=== PATIENT | female | born 1945 | race Caucasian/White ===

== ENCOUNTER 2017-12-15 14:27 | Emergency (ER) | payer MEDICARE, OTHER ==
[2017-12-15 15:11] LABS: Basophils % (A) 0 %; Eosinophils % (A) 1 %; HCT 44.6 % (34.0-46.0); HGB 15.5 gm/dL (11.4-16.0); Lymphocytes # (A) 1.5 k/uL (1.0-4.8); Lymphocytes % (A) 24 %; MCH 30.1 pg (25.0-35.0); MCHC 34.8 g/dL (31.0-37.0); MCV 86.6 fL (80.0-100.0); Monocytes # (A) 0.4 k/uL (0-1.0); Monocytes % (A) 7 %; Neutrophils % (A) 64 %; Platelet Count 263 k/uL (150-450); RBC 5.15 m/uL (3.80-5.40); RDW 12.8 % (11.5-15.5); WBC 6.3 k/uL (3.8-10.6)
[2017-12-15] MEDS ORDERED: DILTIAZEM CD 120 MG CAP.ER.24H PO STA (15:14)
[2017-12-15 15:19] LABS: Albumin 4.2 g/dL (3.5-5.0); Calcium 10.4 mg/dL (8.4-10.2); Total Bilirubin 0.5 mg/dL (0.2-1.3); Total Protein 6.9 g/dL (6.3-8.2)
[2017-12-15 15:22] LABS: Magnesium 1.9 mg/dL (1.6-2.3); Potassium 4.8 mmol/L (3.5-5.1)
[2017-12-15 15:25] LABS: INR 1.4 (<1.2); Partial Thromboplastin Time 28.3 sec (22.0-30.0); Prothrombin Time 13.4 sec (9.0-12.0)
--- NOTE | 2017-12-15 15:25 | XR ---
EXAMINATION TYPE: XR chest 2V DATE OF EXAM: 12/15/2017 COMPARISON: 09/19/2014 HISTORY: 72-year-old female with dysrhythmia TECHNIQUE: PA and lateral views FINDINGS: Heart borderline enlarged. Mild elongation thoracic aorta. Mild diffuse interstitial prominence and m ild hyperinflation. No consolidation or pleural effusion. IMPRESSION: Chronic changes, possible underlying COPD. Borderline heart size. Otherwise, no acute process seen.
[2017-12-15 15:38] VITALS: RESP 18
--- NOTE | 2017-12-15 16:05 | ED ---
Arrhythmia/Palpitations HPI - General Chief Complaint: Arrhythmia/Palpitations Stated Complaint: AFIB Time Seen by Provider: 12/15/17 14:36 Source: patient Mode of arrival: ambulatory Limitations: no limitations - History of Present Illness Initial Comments: Patient presents with palpitations. She has a history of atrial fibrillation. She has taken no medication for the symptoms. She denies any fever, chills. She has no shortness of breath. She has no lightheadedness or dizziness. Nothing makes her symptoms better or worse. She was not doing anything when the palpitations began. They're getting worse. She has no swelling in the legs. She denies sick contacts or recent travel. - Related Data Home Medications Medication Instructions Recorded Confirmed Metoprolol Succinate [Toprol XL] 25 mg PO DAILY 09/04/14 12/15/17 Edoxaban Tosylate [Savaysa] 60 mg PO DAILY 12/29/14 12/15/17 Azithromycin [Zithromax Z-pack] See Taper PO DAILY 12/15/17 12/15/17 Pel[place]o Capsules 1 cap PO DAILY 12/15/17 12/15/17 Cholecalciferol [Vitamin D3] 1,000 unit PO DAILY 12/15/17 12/15/17 Flaxseed Oil [[place]-3 Flaxseed Oil] 1,000 mg PO DAILY 12/15/17 12/15/17 L.acidoph,Paracasei, B.lactis 1 cap PO DAILY 12/15/17 12/15/17 [Probiotic] Lutein 20 mg PO DAILY 12/15/17 12/15/17 Multivit-Min/Iron/Folic/Lutein 1 tab PO DAILY 12/15/17 12/15/17 [Centrum Silver Women Tablet] valACYclovir HCL [Valtrex] 1,000 mg PO BID 12/15/17 12/15/17 Allergies Allergy/AdvReac Type Severity Reaction Status Date / Time apixaban [From Eliquis] Allergy skin on Verified 12/15/17 15:55 face turned red, rash Penicillins Allergy Rash/Hives Verified 12/15/17 15:55 losartan [From Cozaar] AdvReac Rash/Hives Verified 12/15/17 15:55 rivaroxaban [From Xarelto] AdvReac Blood in Verified 12/15/17 15:55 stool cosmetics Allergy Unknown Uncoded 12/15/17 14:33 detergent Allergy Unknown Uncoded 12/15/17 14:33 metal Allergy Unknown Uncoded 12/15/17 14:33 Review of Systems ROS Statement: Those systems with pertinent positive or pertinent negative responses have been documented in the HPI. ROS Other: All systems not noted in ROS Statement are negative. Past Medical History Past Medical History: Atrial Fibrillation, Chest Pain / Angina, GERD/Reflux, Hypertension, Osteoarthritis (OA) Additional Past Medical History / Comment(s): varicose veins, hiatal hernia, fatty liver, skin rashes, History of Any Multi-Drug Resistant Organisms: None Reported Past Surgical History: Back Surgery, Cholecystectomy, Hysterectomy, Joint Replacement, Orthopedic Surgery Additional Past Surgical History / Comment(s): Total L knee replacement, Recto/ cystocele, laminectomy, left knee arthroscopy Past Anesthesia/Blood Transfusion Reactions: Previous Problems w/ Anesthesia Additional Past Anesthesia/Blood Transfusion Reaction / Comment(s): uncontrollable crying post op one time, Past Psychological History: No Psychological Hx Reported Smoking Status: Former smoker Past Alcohol Use History: None Reported Past Drug Use History: None Reported - Past Family History Mother Family Medical History: Cancer, Thyroid Disorder Additional Family Medical History / Comment(s): Colon CA Father Additional Family Medical History / Comment(s): Aortic embolism Son(s) Family Medical History: Pulmonary Embolus Additional Family Medical History / Comment(s): pulmonic embolism Sister(s) Family Medical History: Cancer, Deep Vein Thrombosis (DVT) General Exam Limitations: no limitations General appearance: alert, in no apparent distress Head exam: Present: atraumatic, normocephalic, normal inspection Eye exam: Present: normal appearance, PERRL, EOMI. Absent: scleral icterus, conjunctival injection, periorbital swelling ENT exam: Present: normal exam, mucous membranes moist Neck exam: Present: normal inspection. Absent: tenderness, meningismus, lymphadenopathy Respiratory exam: Present: normal lung sounds bilaterally. Absent: respiratory distress, wheezes, rales, rhonchi, stridor Cardiovascular Exam: Present: tachycardia, normal heart sounds. Absent: systolic murmur, diastolic murmur, rubs, gallop, clicks GI/Abdominal exam: Present: soft, normal bowel sounds. Absent: distended, tenderness, guarding, rebound, rigid Extremities exam: Present: normal inspection, full ROM, normal capillary refill. Absent: tenderness, pedal edema, joint swelling, calf tenderness Back exam: Present: normal inspection Neurological exam: Present: alert, oriented X3, CN II-XII intact Psychiatric exam: Present: normal affect, normal mood Skin exam: Present: warm, dry, intact, normal color. Absent: rash Course Vital Signs 12/15/17 12/15/17 12/15/17 14:30 15:17 15:36 Temperature 97.9 F Pulse Rate 63 139 H 138 H Respiratory 20 20 18 Rate Blood Pressure 163/98 177/97 139/80 O2 Sat by Pulse 99 98 97 Oximetry EKG Findings - EKG Comments: EKG Findings:: Twelve-lead EKG shows ventricular rate 151 bpm, no P waves are present, normal QRS complex is, no ST elevation or depression, interpreted by me as atrial fibrillation with rapid ventricular response. Medical Decision Making - Medical Decision Making Patient presents with A. fib with RVR. I gave her a dose of oral Cardizem. Her troponin is negative. She will be admitted to the hospital. - Lab Data Result diagrams: 12/15/17 14:50 12/15/17 14:50 Lab Results 12/15/17 12/15/17 12/15/17 Range/Units 14:50 14:50 14:50 WBC 6.3 (3.8-10.6) k/uL RBC 5.15 (3.80-5.40) m/uL Hgb 15.5 (11.4-16.0) gm/dL Hct 44.6 (34.0-46.0) % MCV 86.6 (80.0-100.0) fL MCH 30.1 (25.0-35.0) pg MCHC 34.8 (31.0-37.0) g/dL RDW 12.8 (11.5-15.5) % Plt Count 263 (150-450) k/uL Neutrophils % 64 % Lymphocytes % 24 % Monocytes % 7 % Eosinophils % 1 % Basophils % 0 % Neutrophils # 4.0 (1.3-7.7) k/uL Lymphocytes # 1.5 (1.0-4.8) k/uL Monocytes # 0.4 (0-1.0) k/uL Eosinophils # 0.0 (0-0.7) k/uL Basophils # 0.0 (0-0.2) k/uL PT 13.4 H (9.0-12.0) sec INR 1.4 H (<1.2) APTT 28.3 (22.0-30.0) sec Sodium 140 (137-145) mmol/L Potassium 4.8 (3.5-5.1) mmol/L Chloride 104 (98-107) mmol/L Carbon Dioxide 25 (22-30) mmol/L Anion Gap 11 mmol/L BUN 21 H (7-17) mg/dL Creatinine 0.84 (0.52-1.04) mg/dL Est GFR (CKD-EPI)AfAm 81 (>60 ml/min/1.73 sqM) Est GFR (CKD-EPI)NonAf 71 (>60 ml/min/1.73 sqM) Glucose 136 H (74-99) mg/dL Calcium 10.4 H (8.4-10.2) mg/dL Magnesium 1.9 (1.6-2.3) mg/dL Total Bilirubin 0.5 (0.2-1.3) mg/dL AST 39 H (14-36) U/L ALT 37 (9-52) U/L Alkaline Phosphatase 48 (38-126) U/L Troponin I (0.000-0.034) ng/mL Total Protein 6.9 (6.3-8.2) g/dL Albumin 4.2 (3.5-5.0) g/dL 12/15/17 Range/Units 14:50 WBC (3.8-10.6) k/uL RBC (3.80-5.40) m/uL Hgb (11.4-16.0) gm/dL Hct (34.0-46.0) % MCV (80.0-100.0) fL MCH (25.0-35.0) pg MCHC (31.0-37.0) g/dL RDW (11.5-15.5) % Plt Count (150-450) k/uL Neutrophils % % Lymphocytes % % Monocytes % % Eosinophils % % Basophils % % Neutrophils # (1.3-7.7) k/uL Lymphocytes # (1.0-4.8) k/uL Monocytes # (0-1.0) k/uL Eosinophils # (0-0.7) k/uL Basophils # (0-0.2) k/uL PT (9.0-12.0) sec INR (<1.2) APTT (22.0-30.0) sec Sodium (137-145) mmol/L Potassium (3.5-5.1) mmol/L Chloride (98-107) mmol/L Carbon Dioxide (22-30) mmol/L Anion Gap mmol/L BUN (7-17) mg/dL Creatinine (0.52-1.04) mg/dL Est GFR (CKD-EPI)AfAm (>60 ml/min/1.73 sqM) Est GFR (CKD-EPI)NonAf (>60 ml/min/1.73 sqM) Glucose (74-99) mg/dL Calcium (8.4-10.2) mg/dL Magnesium (1.6-2.3) mg/dL Total Bilirubin (0.2-1.3) mg/dL AST (14-36) U/L ALT (9-52) U/L Alkaline Phosphatase (38-126) U/L Troponin I <0.012 (0.000-0.034) ng/mL Total Protein (6.3-8.2) g/dL Albumin (3.5-5.0) g/dL Disposition Clinical Impression: Atrial fibrillation Disposition: ADMITTED IP TO THIS HOSP Condition: Serious Is patient prescribed a controlled substance at discharge?: No Referrals: Leon Cerrato MD [Primary Care Provider] - 1-2 days Time of Disposition: 16:05
--- NOTE | 2017-12-15 18:15 | ED ---
Medical Decision Making - Medical Decision Making The patient was monitored on the classroom monitor and her heart beat was down around 60 on recheck. This does appear to be regular. A repeat EKG was done and this shows a sinus bradycardia at a rate of 57. There is no acute ST-T wave changes identified. The TX intervals 152, QRS duration is 80, and QTC intervals 426. The patient appears to be remarkably improved. She states that her symptoms have completely resolved. The case is discussed with Dr. Cerrato and he would like her discharged home at this period of time. They admission is canceled. Return parameters are discussed and she leaves in no distress. - Lab Data Result diagrams: 12/15/17 14:50 12/15/17 14:50 Lab Results 12/15/17 12/15/17 12/15/17 Range/Units 14:50 14:50 14:50 WBC 6.3 (3.8-10.6) k/uL RBC 5.15 (3.80-5.40) m/uL Hgb 15.5 (11.4-16.0) gm/dL Hct 44.6 (34.0-46.0) % MCV 86.6 (80.0-100.0) fL MCH 30.1 (25.0-35.0) pg MCHC 34.8 (31.0-37.0) g/dL RDW 12.8 (11.5-15.5) % Plt Count 263 (150-450) k/uL Neutrophils % 64 % Lymphocytes % 24 % Monocytes % 7 % Eosinophils % 1 % Basophils % 0 % Neutrophils # 4.0 (1.3-7.7) k/uL Lymphocytes # 1.5 (1.0-4.8) k/uL Monocytes # 0.4 (0-1.0) k/uL Eosinophils # 0.0 (0-0.7) k/uL Basophils # 0.0 (0-0.2) k/uL PT 13.4 H (9.0-12.0) sec INR 1.4 H (<1.2) APTT 28.3 (22.0-30.0) sec Sodium 140 (137-145) mmol/L Potassium 4.8 (3.5-5.1) mmol/L Chloride 104 (98-107) mmol/L Carbon Dioxide 25 (22-30) mmol/L Anion Gap 11 mmol/L BUN 21 H (7-17) mg/dL Creatinine 0.84 (0.52-1.04) mg/dL Est GFR (CKD-EPI)AfAm 81 (>60 ml/min/1.73 sqM) Est GFR (CKD-EPI)NonAf 71 (>60 ml/min/1.73 sqM) Glucose 136 H (74-99) mg/dL Calcium 10.4 H (8.4-10.2) mg/dL Magnesium 1.9 (1.6-2.3) mg/dL Total Bilirubin 0.5 (0.2-1.3) mg/dL AST 39 H (14-36) U/L ALT 37 (9-52) U/L Alkaline Phosphatase 48 (38-126) U/L Troponin I (0.000-0.034) ng/mL Total Protein 6.9 (6.3-8.2) g/dL Albumin 4.2 (3.5-5.0) g/dL 12/15/17 Range/Units 14:50 WBC (3.8-10.6) k/uL RBC (3.80-5.40) m/uL Hgb (11.4-16.0) gm/dL Hct (34.0-46.0) % MCV (80.0-100.0) fL MCH (25.0-35.0) pg MCHC (31.0-37.0) g/dL RDW (11.5-15.5) % Plt Count (150-450) k/uL Neutrophils % % Lymphocytes % % Monocytes % % Eosinophils % % Basophils % % Neutrophils # (1.3-7.7) k/uL Lymphocytes # (1.0-4.8) k/uL Monocytes # (0-1.0) k/uL Eosinophils # (0-0.7) k/uL Basophils # (0-0.2) k/uL PT (9.0-12.0) sec INR (<1.2) APTT (22.0-30.0) sec Sodium (137-145) mmol/L Potassium (3.5-5.1) mmol/L Chloride (98-107) mmol/L Carbon Dioxide (22-30) mmol/L Anion Gap mmol/L BUN (7-17) mg/dL Creatinine (0.52-1.04) mg/dL Est GFR (CKD-EPI)AfAm (>60 ml/min/1.73 sqM) Est GFR (CKD-EPI)NonAf (>60 ml/min/1.73 sqM) Glucose (74-99) mg/dL Calcium (8.4-10.2) mg/dL Magnesium (1.6-2.3) mg/dL Total Bilirubin (0.2-1.3) mg/dL AST (14-36) U/L ALT (9-52) U/L Alkaline Phosphatase (38-126) U/L Troponin I <0.012 (0.000-0.034) ng/mL Total Protein (6.3-8.2) g/dL Albumin (3.5-5.0) g/dL Disposition Clinical Impression: Atrial fibrillation Disposition: HOME SELF-CARE Condition: Serious Instructions: Palpitations (ED), A-fib (Atrial Fibrillation) (ED) Is patient prescribed a controlled substance at discharge?: No Referrals: Leon Cerrato MD [Primary Care Provider] - 1-2 days Sherif Graves MD [STAFF PHYSICIAN] - 1-2 days Time of Disposition: 18:14
[2017-12-15 18:38] VITALS: BP 128/71; PULSE 93; TEMP 98.2
== END 2017-12-15 18:38 | disposition home or self-care (01) ==
LOC: EC 14:27
DX: I48.91 Unspecified atrial fibrillation (principal); I10 Essential (primary) hypertension; Z87.891 Personal history of nicotine dependence; Z79.01 Long term (current) use of anticoagulants; Z79.899 Other long term (current) drug therapy; Z88.8 Allergy status to other drugs, medicaments and biological substances; Z88.0 Allergy status to penicillin; Z91.048 Other nonmedicinal substance allergy status
CPT/HCPCS: 36415; 71046; 80053; 83735; 84484; 85025; 85610; 85730; 93005; 99285

== ENCOUNTER 2019-01-10 10:06 | Day surgery (SDC) | payer MEDICARE, OTHER ==
[2019-01-05 15:59] VITALS: BMI 32.3
[~2019-01-10 10:06] MED LIST: CLINDAMYCIN 900 MG in DEXTROSE 5% IN WATER 50 ML IVPB ONE; SODIUM CHLORIDE 0.9% 1,000 ML IV SCH
[2019-01-10 10:26] VITALS: RESP 16; TEMP 98
[2019-01-10] MEDS ORDERED: LIDOCAINE 1% INJ 10MG/ML (20 ML MDV) ONE ×2 (11:51→14:33)
[2019-01-10] MEDS ORDERED: LIDOCAINE 1% INJ 10MG/ML (20 ML MDV) SQ ONE (12:23)
[2019-01-10] MEDS ORDERED: fentaNYL (PF) 50 MCG/ML 2 ML AMP ONE (12:23)
[2019-01-10] MEDS ORDERED: fentaNYL (PF) 50 MCG/ML 2 ML AMP IV ONE (12:24)
--- NOTE | 2019-01-10 12:48 | P.PCN ---
Preoperative Diagnosis: Loop monitor implant Primary physicians: Dr. Cerrato Deputy Head: dr Vaughan Indication: Recurrent palpitations Patient was brought to the EP lab in a fasting state. Written informed consent was obtained prior to the procedure. The left pectoral area was prepped and draped per protocol. Intravenous antibiotic was administered preoperatively. A subcutaneous Loop monitor was implanted successfully and the wound was closed per protocol. The device was programmed to detect significant isak- arrhythmic and tachy-arrhythmic events, per protocol. Device and programming details: A. fib programming Patient underwent EP procedure under conscious sedation/moderate sedation, monitoring of the level of consciousness and physiologic parameters including but not limited to vital signs and oxygenation. Patient tolerated the procedure well without any acute complications. Start time: 1221 Stop time: 1232
[2019-01-10 13:11] VITALS: BP 121/60; PULSE 52
== END 2019-01-10 13:30 | disposition home or self-care (01) ==
LOC: CATHEP 10:06
PROVIDERS: ATTEND Internal Medicine Clinical Cardiac Electrophysiology
DX: I48.91 Unspecified atrial fibrillation (principal)
CPT/HCPCS: 33285; C1764; J2001; J3010

== ENCOUNTER → 2019-07-06 | Outpatient (CLI) | payer MEDICARE, OTHER ==
[2019-07-06 17:49] LABS: Appearance,BF Bloody; Color,BF Red; Nucleated Cells, Body Fluid 625 /uL; RBC, Body Fluid 1120000 /uL
[2019-07-06 17:52] LABS: Mononuclear WBC,Body Fluid 97 %; Polynuclear WBC,Body Fluid 3 %; Total Cells Counted,Body Fluid 100
== END | disposition home or self-care (01) ==
LOC: LABWHC1 11:26
PROVIDERS: ATTEND Orthopaedic Surgery
DX: M25.562 Pain in left knee (principal); M25.462 Effusion, left knee; Z96.652 Presence of left artificial knee joint
CPT/HCPCS: 87070; 87075; 87205; 89050; 89060

== ENCOUNTER → 2019-09-11 | Outpatient (CLI) | payer MEDICARE, OTHER ==
[2019-09-11 16:29] LABS: HCT 40.9 % (34.0-46.0); HGB 13.8 gm/dL (11.4-16.0); MCH 30.9 pg (25.0-35.0); MCHC 33.7 g/dL (31.0-37.0); MCV 91.9 fL (80.0-100.0); Mean Platelet Volume 7.3; Platelet Count 184 k/uL (150-450); RBC 4.45 m/uL (3.80-5.40); RDW 12.6 % (11.5-15.5); WBC 3.4 k/uL (3.8-10.6)
[2019-09-11 16:36] LABS: Potassium 4.9 mmol/L (3.5-5.1)
== END | disposition home or self-care (01) ==
LOC: LABPAT 15:34
PROVIDERS: ATTEND Internal Medicine Clinical Cardiac Electrophysiology
DX: Z01.812 Encounter for preprocedural laboratory examination (principal); I48.91 Unspecified atrial fibrillation; I47.1 Supraventricular tachycardia
CPT/HCPCS: 80051; 82565; 82947; 84520; 85027

== ENCOUNTER 2019-09-14 06:52 | Day surgery (SDC) | payer MEDICARE, OTHER ==
[2019-09-11 12:00] VITALS: BMI 34.4
[~2019-09-14 06:52] MED LIST changes: -CLINDAMYCIN 900 MG in DEXTROSE 5% IN WATER 50 ML IVPB ONE; +MIDAZOLAM 2 MG/2 ML VIAL IV PRN; +ONDANSETRON 4 MG/2 ML VIAL IVP ONE; -SODIUM CHLORIDE 0.9% 1,000 ML IV SCH; +fentaNYL (PF) 50 MCG/ML 2 ML AMP IV PRN
[2019-09-14] MEDS: SODIUM CHLORIDE 0.9% 1,000 ML IV SCH ×2 (07:20→20:25)
[2019-09-14] MEDS ORDERED: HEPARIN SODIUM,PORCINE 30 ML 30 ML ONE (08:10)
[2019-09-14] MEDS ORDERED: PROTAMINE SULFATE 10 MG/ML 5 ML VIAL IV ONE (08:22)
[2019-09-14] MEDS ORDERED: ePHEDrine SULFATE/0.9% NACL/PF 50 MG/5 ML SYRINGE IV ONE (08:22)
[2019-09-14] MEDS ORDERED: LIDOCAINE 1% INJ 10MG/ML (20 ML MDV) ONE (08:22)
[2019-09-14] MEDS ORDERED: MIDAZOLAM 2 MG/2 ML VIAL ONE (08:22)
[2019-09-14] MEDS ORDERED: ROCURONIUM BROMIDE 10 MG/ML 10 ML VIAL IV ONE (08:22)
[2019-09-14] MEDS ORDERED: NEOSTIGMINE 1 MG/ML 10 ML VIAL ONE (08:22)
[2019-09-14] MEDS ORDERED: SUCCINYLCHOLINE CHLORIDE 100 MG/5 ML SYR IV ONE (08:22)
[2019-09-14] MEDS ORDERED: fentaNYL (PF) 50 MCG/ML 2 ML AMP ONE (08:22)
[2019-09-14] MEDS ORDERED: GLYCOPYRROLATE 0.2 MG/ML 2 ML VIAL ONE (08:22)
[2019-09-14] MEDS ORDERED: FUROSEMIDE 10 MG/ML 2 ML VIAL ONE (08:22)
[2019-09-14] MEDS ORDERED: PHENYLEPHRINE-0.9% NACL SYG 1 MG/10 ML SYRINGE ONE (08:22)
[2019-09-14] MEDS ORDERED: PROPOFOL 10 MG/ML 20 ML VIAL IV ONE (08:22)
[2019-09-14] MEDS ORDERED: HEPARIN SODIUM,PORCINE 10,000 UNIT/ML 1 ML VIAL ONE (08:22)
[2019-09-14] MEDS ORDERED: ISOPROTERENOL 250 MCG/1.25 ML SYR IV ONE (08:22)
--- NOTE | 2019-09-14 08:39 | P.HPCAR ---
History of Present Illness This is Jeannie Briones PA-C dictating an H&P on this patient The patient was interviewed and examined by me as well as by Dr. Graves Case discussed with Dr. Graves and he agrees with the plan of care IMPRESSION / ASSESSMENT: Symptomatic paroxysmal atrial fibrillation with RVR, refractory to drug therapy with metoprolol and flecainide History of sick sinus syndrome Hypertension Dyslipidemia LVH PLAN: Proceed with diagnostic EP study and atrial fibrillation ablation HPI Patient is a 75-year-old female with a past medical history of paroxysmal atrial fibrillation, hypertension, dyslipidemia, LVH, sick sinus syndrome who presented for management of atrial fibrillation. She had been experiencing more frequent episodes of palpitations with associated chest discomfort, shortness of breath and lightheadedness. Her loop monitor interrogation was showing frequent episodes of PAF with RVR. She has a history of sick sinus syndrome so antiarrhythmic and rate control medication options are limited. Stress testing has been negative for reversible ischemia. Patient seen and examined resting comfortably in bed. She denies any palpitations, dizziness or syncope. No chest pain or shortness of breath on exertion. She is able to lie flat comfortably, no orthopnea or PND. She did recently have a cold however she has recovered. No fevers, chills, cough. ROS: No fevers, chills or rigors, no cough, phlegm or expectoration, no nausea, vomiting or diarrhea, no hematuria, dysuria, no musculoskeletal complaints, no strokes or seizures, no skin lesions. EXAMINATION: Patient is afebrile, pulse 57, respirations 16, blood pressure 153/73, oxygen saturation 97% on room air Patient seen and examined resting comfortably in bed, in no acute distress Lungs are clear to auscultation bilaterally, no rhonchi crackles or wheezing Heart is regular, no audible murmurs rubs or gallops No elevated JVD Extremities are warm, trace lower extremity edema bilaterally Abdomen soft and nontender patient REVIEW OF LABS, ECG & MEDICAL DATA Recent labs reviewed, WBC 3.4, hemoglobin 13.8, platelets 184, BUN 23, creatin ine 0.91, potassium 4.9 Most recent TSH within normal limits Physical Exam Vitals: Vital Signs Temp Pulse Resp BP Pulse Ox 09/14/19 07:15 97.8 F 57 L 16 153/73 97 Intake and Output 09/13/19 09/14/19 09/14/19 22:59 06:59 14:59 Intake Total 50 Balance 50 Intake: IV 50 Other: Weight 95.8 kg Past Medical History Past Medical History: Atrial Fibrillation, Chest Pain / Angina, GERD/Reflux, Hypertension, Osteoarthritis (OA) Additional Past Medical History / Comment(s): See Dr Graves's H&P, varicose veins, hiatal hernia, fatty liver, skin rashes, History of Any Multi-Drug Resistant Organisms: None Reported Past Surgical History: Back Surgery, Cholecystectomy, Hysterectomy, Joint Replacement, Orthopedic Surgery Additional Past Surgical History / Comment(s): Total L knee replacement, Recto/cystocele, laminectomy, left knee arthroscopy Past Anesthesia/Blood Transfusion Reactions: Previous Problems w/ Anesthesia Additional Past Anesthesia/Blood Transfusion Reaction / Comment(s): uncontrollable crying post op one time, no hx blood transfusion Smoking Status: Never smoker - Past Family History Mother Family Medical History: Cancer, Thyroid Disorder Additional Family Medical History / Comment(s): Colon CA Father Additional Family Medical History / Comment(s): aortic aneurysm Son(s) Family Medical History: Pulmonary Embolus Additional Family Medical History / Comment(s): pulmonic embolism Brother(s) Family Medical History: Cancer Additional Family Medical History / Comment(s): colon CA Sister(s) Family Medical History: Cancer, Coronary Artery Disease (CAD), Deep Vein Thrombosis (DVT) Physical Examination Vital Signs Temp Pulse Resp BP Pulse Ox 09/14/19 07:15 97.8 F 57 L 16 153/73 97 Intake and Output 09/13/19 09/14/19 09/14/19 22:59 06:59 14:59 Intake Total 50 Balance 50 Intake: IV 50 Other: Weight 95.8 kg Results Current Medications Generic Name Dose Route Start Last Admin Trade Name Freq PRN Reason Stop Dose Admin Fentanyl Citrate 50 mcg 09/14/19 06:13 Sublimaze IV 09/15/19 06:14 Q3M PRN Pain Control Lactated Ringer's 1,000 mls @ 20 mls/hr 09/14/19 06:13 Lactated Ringers IV .Q24H TELMA Sodium Chloride 1,000 mls @ 20 mls/hr 09/14/19 06:13 09/14/19 07:20 Saline 0.9% IV 50 mls .Q24H TELMA Administration Midazolam HCl 2 mg 09/14/19 06:13 Versed IV 09/15/19 06:14 ONCE PRN Anxiety Intake and Output 09/13/19 09/14/19 09/14/19 22:59 06:59 14:59 Intake Total 50 Balance 50 Intake: IV 50 Other: Weight 95.8 kg Patient Weight 09/15/19 06:59 Weight 95.8 kg
[2019-09-14] MEDS ORDERED: LIDOCAINE 1% INJ 10MG/ML (20 ML MDV) SQ ONE (09:14)
[2019-09-14] MEDS ORDERED: HEPARIN SOD,PORK IN 0.45% NACL 25,000 UNIT in 0.45% NACL 1 250ML.BAG IV ONE (09:14)
[2019-09-14] MEDS ORDERED: HEPARIN SODIUM (1,000 UNIT/ML) 1,000 UNIT in SODIUM CHLORIDE 0.9% 1,000 ML IRRIGATION ONE (09:32)
[2019-09-14] MEDS ORDERED: ACETAMINOPHEN TAB 325 MG TAB PO PRN (13:16)
[2019-09-14] MEDS ORDERED: HYDROcodone/APAP 5-325MG 1 EACH TAB PO PRN (13:16)
[2019-09-14] MEDS ORDERED: IOPAMIDOL-370 100ML BTL INJ ONE (13:21)
[2019-09-14] MEDS ORDERED: ACETAMINOPHEN IV (For NPO) 1,000 MG in EMPTY BAG 1 BAG IVPB ONE (14:00)
[2019-09-14] MEDS: LACTATED RINGERS 1,000 ML IV SCH ×2 (14:38→20:26)
[2019-09-14] MEDS ORDERED: ONDANSETRON 4 MG/2 ML VIAL IVP PRN (14:52)
[2019-09-14 15:36] LABS: Basophils # (A) 0.1 k/uL (0-0.2); Basophils % (A) 1 %; Eosinophils # (A) 0.1 k/uL (0-0.7); Eosinophils % (A) 1 %; HCT 40.4 % (34.0-46.0); HGB 13.5 gm/dL (11.4-16.0); Lymphocytes # (A) 1.1 k/uL (1.0-4.8); Lymphocytes % (A) 9 %; MCH 30.6 pg (25.0-35.0); MCHC 33.4 g/dL (31.0-37.0); MCV 91.6 fL (80.0-100.0); Mean Platelet Volume 7.3; Monocytes # (A) 0.6 k/uL (0-1.0); Monocytes % (A) 5 %; Neutrophils # (A) 9.9 k/uL (1.3-7.7); Neutrophils % (A) 84 %; Platelet Count 291 k/uL (150-450); RBC 4.41 m/uL (3.80-5.40); RDW 12.5 % (11.5-15.5); WBC 11.7 k/uL (3.8-10.6)
[2019-09-14 15:55] LABS: Calcium 9.1 mg/dL (8.4-10.2); Potassium 4.1 mmol/L (3.5-5.1)
--- NOTE | 2019-09-14 18:12 | P.PCN ---
Preoperative Diagnosis: Diagnosis Atrial fibrillation, symptomatic, refractory to therapy [employer]: Dr. Graves, purchasing assistant: Jeannie Briones PA-C Result No left atrial appendage mass seen on intracardiac echo Successful pulmonary vein isolation of all veins using cryo-ablation Complete entrance block in all 4 veins confirmed No evidence for phrenic nerve injury 3 separate RF lines were made, one along the mitral isthmus, second was anterior roofline, and the third was in the anterior septum Esophageal deflection YES Electrical cardioversion with a synchronized shock across the chest YES Procedure details Patient was brought to the EP lab in a fasting state. Written informed consent was obtained prior to the procedure. Procedure performed under general anesthesia After initial muscle relaxant use, muscle relaxants were not given thereafter in order to assess phrenic nerve during procedure. Patient prepped and draped as per protocol Full cryo-set up with standard preparation of the cryoablation tools done. Femoral Venous access obtained on the right and left groins Venous and arterial Sheaths placed. Diagnostic catheters for the high right atrium, phrenic nerve stimulation and pacing, His bundle, RV and coronary sinus placed Intracardiac echo catheter placed. Long sheath placed in the right atrium Left and right transseptal catheterization performed under intracardiac echo guidance. Intravenous heparin with aCT above 300 Later, catheter positioning and balloon positioning in the left atrium, under intracardiac echo guidance Diagnostic EP study with Isuprel Drug infusion Coronary sinus pacing and recording Baseline measurements Sinus cycle length 1191, SC interval 130 ms, QRS 136 ms, QT interval 562 Atrial pacing performed from the high right atrium and coronary sinus Transseptal catheterization performed LA pressure 35/8/19 Transseptal catheterization performed with standard sheath. The cryoablation sh [facility] was then placed with an over the wire exchange without any acute complications. All 4 pulmonary veins were isolated in the following sequence: Left superior followed by left inferior followed by right superior followed by right inferior The cryo-ablation balloon was placed at the os of each vein 1.5 mL of IV dye was injected to confirm an occluded vein Goal during cryoablation was to achieve complete occlusion of the pulmonary vein, achieve -30 degrees C at 30 seconds and achieve -40 degrees C at 60 seconds and a time to effect of less than 60-90 seconds, . If not the balloon was repositioned to obtain this result After completion of Cryoblation with durations from 180-240 seconds, entrance block was confirmed with the Attain circular catheter in a roving fashion around the antrum of the pulmonary veins Phrenic nerve pacing was performed from the SVC, right innominate vein area and diaphragm voltage was monitored. Diaphragmatic contractions were also monitored manually for strength of contraction. Parameter goals for each cryo freeze Complete occlusion of the appropriate vein -30 degrees C by 30 seconds -40 degrees C by 60 seconds Minimum between minus 40-55 degrees C Thaw time greater than 10 seconds Balloon visualized by intracardiac echo The esophagus was intubated. Esophageal Temperature monitoring with a CIRCA catheter formed. Esophageal deflection for hypothermia of the esophagus below 30 degrees C Left superior pulmonary vein Complete isolation, entrance block Left inferior pulmonary vein Complete isolation, entrance block Right superior pulmonary vein, during phrenic nerve pacing Complete isolation, entrance block Right inferior pulmonary vein, during phrenic nerve pacing Complete isolation, entrance block At the end of the procedure the Achieve catheter was once again used to check for entrance block Phrenic nerve stimulation was performed to confirm diaphragmatic stimulation the end of the procedure Cine fluoroscopy was performed at the very end of the procedure to confirm movement of both diaphragms with inspiration and expiration After cryoablation was performed, and EP study was performed The CS catheter was placed in the high right atrium SNRT at 600, 500, and 400 later 1042, 1042, and 1066 respectively Isuprel drip was started AV node Wenckebach block at 290 ms Atrial Extrastimulation was performed AV ERP at 600/250 and 400/230, 500/less than 190/240, 400/200/less than 200 Left bundle aberrancy was noted at 500/270/210 Right bundle aberrancy was noted with straight pacing Left bundle aberrancy was noted with straight pacing at 270 ms burst stimulation was performed from high right atrium at 400 ms down to 220 ms with no inducible arrhythmias The CS catheter was then placed into the CS Burst stimulation was performed at 500 ms down to 480 ms In between burst stimulation the patient spontaneously went into atrial fibrillation on Isuprel The start of atrial fibrillation did not correlate with pacing She stayed in atrial fibrillation that would alternate between organized signals and very fractionated signals at times with different activation patterns Isuprel was stopped and detailed mapping was performed with the ablation catheter A voltage map was performed and all 4 pulmonary veins were confirmed to be isolated, then an activation map was attempted At times the activation pattern resembles a mitral reentrant atrial tachycardia with the earliest activation in CS 1,2 and latest in CS 9,10 Therefore radiofrequency ablation was performed along the mitral isthmus This resulted in further organization of the atrial fibrillation/atrial tachycardia and radiofrequency ablation was performed along the anterior roof line which again resulted in further organization There were fractionated signals along the anterior septum and radiofrequency ablation was performed along the anterior septum from the inferior right pulmonary vein just posterior to the fossa ovalis up to the roofline This resulted in a more organized atrial fibrillation Thereafter electrical cardioversion was performed with a 360 J biphasic shock to sinus rhythm with PACs At the end of the procedure the patient was extubated Heparin was reversed Venous sheaths were removed and hemostasis assured Procedures performed (PVI - CRYO Ablation) Diagnostic EP study CS pacing and recording Left and right transseptal catheterization 3D mapping Intracardiac echocardiography Pulmonary vein isolation with transseptal and comprehensive EPS, [id number] Left atrial roof line, +[id number] Mitral isthmus radiofrequency line Anterior septal RF line Electrical cardioversion with a synchronized shock across the chest [id number] Drug Infusion +[id number]
--- NOTE | 2019-09-14 18:19 | P.PRLE ---
RE: Mallory Cavanaugh Dear Leonsteff Lea underwent cryoablation of the pulmonary veins. Successful pulmonary vein isolation was performed for all 4 veins Thereafter we were able to induce a very organized atrial fibrillation. She underwent linear ablation at 3 separate sites. With each sequential linear ablation those for the organization of atrial fibrillation but she still has a slow residual somewhat organized atrial fibrillation and she was electrically cardioverted thereafter She will continue anticoagulation and will use flecainide only on a when necessary basis for now Hopefully this was also a significant reduction in her A. fib episodes Thank you for entrusting me with the care of the patient Warm regards Sincerely Sherif Graves
[2019-09-14] MEDS: COLCHICINE 0.6 MG EACH PO SCH (20:24)
[2019-09-14] MEDS ORDERED: FAMOTIDINE 20 MG TAB PO SCH (21:00)
[2019-09-15 05:48] VITALS: RESP 18
--- NOTE | 2019-09-15 07:49 | P.DS ---
Providers Attending physician: Sherif Graves Primary care physician: [facility] Course: Patient is doing well. She has a mild headache but no visual disturbance now. Yesterday she had brief visual disturbance but she has experienced this in the past occasionally Her vitals are stable. She has no neurologic deficits at this time. Her left groin is painful but there is no hematoma no swelling. There is tenderness Breath sounds are clear no rhonchi no crackles Heart sounds are normal Abdomen soft Extended is warm Impression Paroxysmal atrial fibrillation status post A. fib ablation with PVI Following that a relatively organized atrial fibrillation was induced which would changes activation pattern and at times it would look like mitral reentry AV node ablation was performed in the mitral isthmus Linear ablation in the roof Linear ablation along the anterior septum Further organization of atrial fibrillation and slowing of the cycle length but atrial fibrillation still continue despite this Electrical cardioversion was performed at the end Plan Continue Savaysa continue current medications and discharge home later this afternoon Follow up in 1 week and linear ablation Patient Condition at Discharge: Stable Plan - Discharge Summary Discharge Rx Participant: No New Discharge Prescriptions: No Action Metoprolol Succinate [Toprol XL] 50 mg PO DAILY Edoxaban Tosylate [Savaysa] 60 mg PO DAILY valACYclovir HCL [Valtrex] 1,000 mg PO BID PRN PRN Reason: Cold Sores Lutein 20 mg PO DAILY Flaxseed Oil [[place]-3 Flaxseed Oil] 1,000 mg PO DAILY Multivit-Min/Iron/Folic/Lutein [Centrum Silver Women Tablet] 1 tab PO DAILY L.acidoph,Paracasei, B.lactis [Probiotic] 1 cap PO DAILY Cholecalciferol [Vitamin D3] 1,000 unit PO DAILY Cetirizine HCl [Zyrtec] 10 mg PO DAILY Flecainide Acetate [Tambocor] 100 mg PO Q12H PRN PRN Reason: HR>100lasting>20min amLODIPine BESYLATE 5 mg PO DAILY Cinnamon Bark [Cinnamon] 500 mg PO DAILY Discharge Medication List Metoprolol Succinate [Toprol XL] 50 mg PO DAILY 09/04/14 [History] Edoxaban Tosylate [Savaysa] 60 mg PO DAILY 12/29/14 [History] Cholecalciferol [Vitamin D3] 1,000 unit PO DAILY 12/15/17 [History] Flaxseed Oil [[place]-3 Flaxseed Oil] 1,000 mg PO DAILY 12/15/17 [History] L.acidoph,Paracasei, B.lactis [Probiotic] 1 cap PO DAILY 12/15/17 [History] Lutein 20 mg PO DAILY 12/15/17 [History] Multivit-Min/Iron/Folic/Lutein [Centrum Silver Women Tablet] 1 tab PO DAILY 12/15/17 [History] valACYclovir HCL [Valtrex] 1,000 mg PO BID PRN 12/15/17 [History] Cetirizine HCl [Zyrtec] 10 mg PO DAILY 01/05/19 [History] Flecainide Acetate [Tambocor] 100 mg PO Q12H PRN 01/05/19 [History] amLODIPine BESYLATE 5 mg PO DAILY 01/05/19 [History] Cinnamon Bark [Cinnamon] 500 mg PO DAILY 09/11/19 [History] Follow up Appointment(s)/Referral(s): Sherif Graves MD [STAFF PHYSICIAN] - 1 Week Activity/Diet/Wound Care/Special Instructions: Post EP study - Ablation instructions 1. Keep access sites dry for 2 days. 2. No heavy lifting or straining for 2 days. 3. Avoid bending the hips repeatedly for 2 days. 4. You may go up and down stairs slowly Call if the following is noted 1. Bleeding, increasing swelling or pain at the access sites. 2. Increasing chest discomfort, especially upon taking a deep breath. 3. Increasing shortness of breath, at rest or with exertion. 4. Undue cough / phlegm 5. Difficulty or pain while swallowing. 6. Pain or change in color in the extremities. 7. Fever, chills, rigors. 8. Increasing headache or neurologic symptoms. 9. Dizziness, fainting, palpitations Continue all medications as previously prescribed including savaysa Discharge Disposition: HOME SELF-CARE
[2019-09-15] MEDS: COLCHICINE 0.6 MG EACH PO SCH (08:03)
[2019-09-15] MEDS ORDERED: amLODIPine 5 MG TAB PO SCH (09:00)
[2019-09-15] MEDS ORDERED: METOPROLOL SUCCINATE (ER) 50 MG TAB.ER.24H PO SCH (09:00)
[2019-09-15] MEDS ORDERED: EDOXABAN TOSYLATE 60 MG TABLET PO SCH (09:00)
[2019-09-15 11:30] VITALS: BP 101/59; PULSE 65; TEMP 98.2
== END 2019-09-15 13:55 | disposition home or self-care (01) ==
LOC: CATHEP 06:52 → 1SOBS 13:22 → CATHEP 09-15 13:55
PROVIDERS: ATTEND Internal Medicine Clinical Cardiac Electrophysiology
DX: I48.0 Paroxysmal atrial fibrillation (principal); I49.5 Sick sinus syndrome; E78.5 Hyperlipidemia, unspecified; I20.9 Angina pectoris, unspecified; K21.9 Gastro-esophageal reflux disease without esophagitis; M19.90 Unspecified osteoarthritis, unspecified site; I83.90 Asymptomatic varicose veins of unspecified lower extremity; I11.9 Hypertensive heart disease without heart failure; K44.9 Diaphragmatic hernia without obstruction or gangrene; K76.0 Fatty (change of) liver, not elsewhere classified; Z90.49 Acquired absence of other specified parts of digestive tract; Z90.710 Acquired absence of both cervix and uterus; Z96.652 Presence of left artificial knee joint; Z83.49 Family history of other endocrine, nutritional and metabolic diseases; Z80.0 Family history of malignant neoplasm of digestive organs; Z82.49 Family history of ischemic heart disease and other diseases of the circulatory system; Z91.09 Other allergy status, other than to drugs and biological substances; Z79.02 Long term (current) use of antithrombotics/antiplatelets; Z79.899 Other long term (current) drug therapy; Z88.0 Allergy status to penicillin; Z88.8 Allergy status to other drugs, medicaments and biological substances
CPT/HCPCS: 85347; 92960; 93623; 93662; 93613; 93656; 93657; 80048; 85025; C1769 ×4; C1894 ×2; C1730 ×2; C1759; C1893; C1733; C1766; C1732; J2250; J2720; J1644 ×3; J1940; J2710; J2405; J2001; J3010; J2370; J0330; J2704; Q9967

== ENCOUNTER → 2019-10-10 | Outpatient (CLI) | payer MEDICARE, OTHER ==
[2019-10-10 16:59] LABS: HCT 42.2 % (34.0-46.0); HGB 13.7 gm/dL (11.4-16.0); MCH 29.6 pg (25.0-35.0); MCHC 32.4 g/dL (31.0-37.0); MCV 91.5 fL (80.0-100.0); Platelet Count 306 k/uL (150-450); RBC 4.61 m/uL (3.80-5.40); WBC 5.7 k/uL (3.8-10.6)
[2019-10-10 17:08] LABS: Potassium 4.5 mmol/L (3.5-5.1)
== END | disposition home or self-care (01) ==
LOC: LABPAT 16:23
PROVIDERS: ATTEND Internal Medicine Clinical Cardiac Electrophysiology
DX: Z01.812 Encounter for preprocedural laboratory examination (principal); I49.5 Sick sinus syndrome; I48.0 Paroxysmal atrial fibrillation
CPT/HCPCS: 36415; 80051; 82565; 82947; 84520; 85027

== ENCOUNTER 2019-10-23 09:49 | Day surgery (SDC) | payer MEDICARE, OTHER ==
[2019-10-18 11:15] VITALS: BMI 33.4
[~2019-10-23 09:49] MED LIST changes: +CLINDAMYCIN 600 MG in SODIUM CHLORIDE 0.9% IRRIGATIO 250 ML IRRIGATION ONE; +CLINDAMYCIN 900 MG in DEXTROSE 5% IN WATER 50 ML IVPB ONE; -MIDAZOLAM 2 MG/2 ML VIAL IV PRN; -ONDANSETRON 4 MG/2 ML VIAL IVP ONE; -fentaNYL (PF) 50 MCG/ML 2 ML AMP IV PRN
[2019-10-23 10:13] VITALS: RESP 18
[2019-10-23] MEDS: SODIUM CHLORIDE 0.9% 1,000 ML IV SCH ×2 (10:13→19:27)
[2019-10-23] MEDS ORDERED: LIDOCAINE 1% INJ 10MG/ML (20 ML MDV) ONE ×3 (10:23→13:50)
[2019-10-23] MEDS ORDERED: MIDAZOLAM 2 MG/2 ML VIAL ONE (10:37)
[2019-10-23] MEDS ORDERED: ONDANSETRON 4 MG/2 ML VIAL ONE (10:37)
[2019-10-23] MEDS ORDERED: PROPOFOL 10 MG/ML 20 ML VIAL IV ONE (10:37)
[2019-10-23] MEDS ORDERED: fentaNYL (PF) 50 MCG/ML 2 ML AMP ONE (10:37)
[2019-10-23] MEDS ORDERED: DEXAMETHASONE SOD PHOS (MDV) 100 MG/10 ML VIAL ONE (10:37)
[2019-10-23] MEDS ORDERED: IOPAMIDOL-250 100ML BTL IV ONE (10:55)
[2019-10-23] MEDS ORDERED: LIDOCAINE 1% INJ 10MG/ML (20 ML MDV) SQ ONE ×3 (11:27→13:55)
[2019-10-23] MEDS ORDERED: ACETAMINOPHEN TAB 325 MG TAB PO PRN (13:36)
[2019-10-23] MEDS ORDERED: ACETAMINOPHEN IV (For NPO) 1,000 MG in EMPTY BAG 1 BAG IVPB ONE (13:36)
--- NOTE | 2019-10-23 13:58 | P.PCN ---
Preoperative Diagnosis: Loop explant under sedation and local anesthesia. Patient was brought to the EP lab in a fasting state. Written informed consent was obtained prior to the procedure. The subcutaneous device was successfully explanted under local anesthesia. Preoperative antibiotics were administered. The wound was closed in layers and dressed per protocol. Result: Successful loop monitor explantation.
[2019-10-23] MEDS: HYDROcodone/APAP 5-325MG 1 EACH TAB PO PRN ×2 (15:16→21:20)
--- NOTE | 2019-10-23 15:20 | LTR ---
DATE OF SERVICE: 10/23/2019 RE: Mallory Cavanaugh Dear Dr. Quintero; I had the pleasure in seeing Mallory Cavanaugh in electrophysiology followup. 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 Therefore, a biventricular pacemaker with His bundle pacing was performed successfully and I am increasing the dose of metoprolol succinate to 50 mg p.o. daily. This can be further increased in depending upon her ventricular response. Since she has a His bundle lead, QRS will be a relatively narrow with synchronized activation of the right and left ventricles. Thank you for entrusting us with the care of your patient. Warm regards. Sincerely, MD FAHAD Jordan / TIA: [id number] /
--- NOTE | 2019-10-23 15:20 | PCN ---
PROCEDURE NOTE This is a 74-year-old female with atrial fibrillation, tachy-isak syndrome with sick sinus syndrome. She has paroxysmal atrial fibrillation. She has evidence of sick sinus syndrome. She has symptomatic pauses,. unable to use beta blockers in adequate doses to control her heart rates on account of severe bradycardia. Pauses are detected on the loop monitor. She is brought in for a biventricular pacemaker implantation to avoid RV pacing. The patient brought to the EP lab in a fasting state. Written informed consent was obtained prior to the procedure. The left shoulder area was prepped and draped as per protocol. 1% lidocaine was used for local anesthesia. A 4 cm incision was made parallel to the deltopectoral groove, about 1.5 cm medial to it. The incision was carried down to the level of the pectoralis muscle. A subfascial pocket was made. Hemostasis was assured. The left axillary vein access was accessed at 3 separate points under fluoroscopy and via appropriately-sized introducer sheaths, 3 leads were positioned the right heart. The atrial lead was a Medtronic model #56030, 53 cm length and serial #[id number]. Pacing threshold 0.7 V at 0.4 milliseconds, pacing impedance of 570 ohms, P waves 3-4 mV. This is a passive lead. The RV lead was also a passive lead, 58 cm in length, model #4074 serial #[id number]. The R-waves of 4-5 mV, pacing impedance 1178 ohms, pacing threshold 0.5 V at 0.4 milliseconds 10 V test negative. The LV port is connected in His bundle lead. Mapping of the His bundle area was performed. This was the most difficult part of the procedure. Excellent in His bundle signals were noted, but the lead would not be stable during these positions. After over an hour of mapping, we were able to get a distal His position and once the lead was screwed in this position, excellent stability was noted. Pacing showed nonselective capture down to 2 V and then selective capture thereafter. Loss of selective capture occurred between 1 and 1.5 V at 1 milliseconds. All 3 leads were secured to the underlying pectoralis fascia using 2 nonabsorbable sutures. Pocket was irrigated with antibiotic solution. Leads were connected to the generator ([employer] model #W1TR02, serial #[id number]. The LV lead used was Medtronic model #3830, lead 69 cm in length and serial #[id number]. The leads and generator were then placed in subfascial pocket. The wound was closed in 3 layers and dressed per protocol. RESULT: Successful dual-chamber biventricular pacemaker generator implantation with His bundle lead screwed in the distal His bundle position with nonselective capture, 102 V and selective capture thereafter. This was the most difficult part of the procedure and in achieving a stable His bundle lead position was the issue. The His bundle was mapped consistently, but the lead could not be screwed in a stable position, but finally we were able to achieve a very stable position in the distal His bundle area with nonselective capture down to 2 V and selective capture for the down. The patient tolerated the procedure well without any acute complications. PLAN: Plan maximize beta blockers now. Continue antihypertensive therapy and continue anticoagulation with Savaysa. FAHAD / TIA: [id number] /
[2019-10-23] MEDS: CLINDAMYCIN 900 MG in DEXTROSE 5% IN WATER 50 ML IVPB SCH ×4 (16:11→21:15)
[2019-10-23] MEDS ORDERED: CLINDAMYCIN 900 MG in DEXTROSE 5% IN WATER 50 ML IVPB SCH ×4 (17:00→17:30)
[2019-10-24] MEDS: SODIUM CHLORIDE 0.9% 1,000 ML IV SCH ×2 (02:36)
[2019-10-24] MEDS: CLINDAMYCIN 900 MG in DEXTROSE 5% IN WATER 50 ML IVPB SCH ×4 (03:16→09:31)
[2019-10-24 07:36] VITALS: BP 116/69; PULSE 64; TEMP 98.1
--- NOTE | 2019-10-24 08:14 | XR ---
EXAMINATION TYPE: XR chest 2V DATE OF EXAM: 10/24/2019 COMPARISON: Prior chest x-ray 12/15/2017 HISTORY: Lead placement check TECHNIQUE: Frontal and lateral views of the chest are obtained. FINDINGS: The heart remains enlarged. Generator has been placed in the left pectoral region. There a re leads in the right atrium and ventricle. There is no evident pneumothorax or pleural effusion. The re are overlying cardiac leads. Surgical clips present in the right upper quadrant. IMPRESSION: No evident complication status post lead placement.
[2019-10-24] MEDS: HYDROcodone/APAP 5-325MG 1 EACH TAB PO PRN (08:29)
[2019-10-24] MEDS ORDERED: valACYclovir HCL 1,000 MG TABLET PO PRN (08:48)
[2019-10-24] MEDS ORDERED: amLODIPine 5 MG TAB PO SCH (09:00)
[2019-10-24] MEDS ORDERED: CHOLECALCIFEROL 1,000 UNIT TAB PO SCH (09:00)
[2019-10-24] MEDS ORDERED: PANTOPRAZOLE 40 MG TABLET PO SCH (09:00)
[2019-10-24] MEDS ORDERED: EDOXABAN TOSYLATE 60 MG TABLET PO SCH (09:00)
[2019-10-24] MEDS ORDERED: METOPROLOL SUCCINATE (ER) 50 MG TAB.ER.24H PO SCH (09:00)
--- NOTE | 2019-10-24 13:11 | P.DS ---
Providers Attending physician: Sherif Graves Primary care physician: [facility] Course: Patient is doing very well. She is ambulating around in the room in the bathroom No chest discomfort dizziness lightheadedness palpitations Mild soreness in the pacemaker site No bruising no hematoma On examination Blood pressure 170-16 mmHg respirations normal, afebrile 98.1F Breath sounds are clear no rhonchi no crackles Heart sounds S1 and S2 normal no murmurs or gallops or rub Breath sounds are clear no rhonchi no crackles Abdomen soft nontender Extended is warm no edema Impression Tachybradycardia syndrome, paroxysmal A. fib Status post pacemaker implantation, His bundle pacemaker, biventricular to avoid constant RV pacing Increase beta blockers If this does not control atrial fibrillation rates and AV junction modification will be recommended Continue anticoagulation continue other cardiac medications Follow-up in the device clinic in [address] Graves in 3 months Plan - Discharge Summary Discharge Rx Participant: No New Discharge Prescriptions: New Metoprolol Succinate (ER) [Toprol XL] 50 mg PO DAILY #90 tab Discontinued Metoprolol Succinate [Toprol XL] 25 mg PO DAILY No Action Edoxaban Tosylate [Savaysa] 60 mg PO DAILY valACYclovir HCL [Valtrex] 1,000 mg PO BID PRN PRN Reason: Cold Sores Flaxseed Oil [[place]-3 Flaxseed Oil] 1,000 mg PO DAILY Multivit-Min/Iron/Folic/Lutein [Centrum Silver Women Tablet] 1 tab PO DAILY L.acidoph,Paracasei, B.lactis [Probiotic] 1 cap PO DAILY Cholecalciferol [Vitamin D3] 1,000 unit PO DAILY Cetirizine HCl [Zyrtec] 10 mg PO DAILY amLODIPine BESYLATE 5 mg PO DAILY Cinnamon Bark [Cinnamon] 500 mg PO DAILY Lutein 10 mg PO DAILY Turmeric Tab 400 mg PO DAILY Pantoprazole Sodium [Protonix] 40 mg PO DAILY Discharge Medication List Edoxaban Tosylate [Savaysa] 60 mg PO DAILY 12/29/14 [History] Cholecalciferol [Vitamin D3] 1,000 unit PO DAILY 12/15/17 [History] Flaxseed Oil [[place]-3 Flaxseed Oil] 1,000 mg PO DAILY 12/15/17 [History] L.acidoph,Paracasei, B.lactis [Probiotic] 1 cap PO DAILY 12/15/17 [History] Multivit-Min/Iron/Folic/Lutein [Centrum Silver Women Tablet] 1 tab PO DAILY 12/15/17 [History] valACYclovir HCL [Valtrex] 1,000 mg PO BID PRN 12/15/17 [History] Cetirizine HCl [Zyrtec] 10 mg PO DAILY 01/05/19 [History] amLODIPine BESYLATE 5 mg PO DAILY 01/05/19 [History] Cinnamon Bark [Cinnamon] 500 mg PO DAILY 09/11/19 [History] Lutein 10 mg PO DAILY 10/18/19 [History] Turmeric Tab 400 mg PO DAILY 10/18/19 [History] Metoprolol Succinate (ER) [Toprol XL] 50 mg PO DAILY #90 tab 10/23/19 [Rx] Pantoprazole Sodium [Protonix] 40 mg PO DAILY 10/23/19 [History] Follow up Appointment(s)/Referral(s): Sherif Graves MD [STAFF PHYSICIAN] - 10/30/19 4:00 pm (Follow up in the Device Clinic on October 29 at 4:00pm Follow up with Dr. Graves in 3 months on January 23 at 4:15pm ) Patient Instructions/Handouts: Pacemaker (GEN) Activity/Diet/Wound Care/Special Instructions: 1. Do Not remove dressing. Keep dressing clean and dry. 2. No baths. You may shower and cover with saran or cling wrap. 3. Do not raise your left arm above heart level. You may use your right arm freely. 4. No backscratching, reaching, pulling, or lifting over 5lbs for (up to) 12 weeks. 5. You may perform pendulum exercises with left arm to prevent frozen shoulder. 6. Call Cardiology if you notice any bleeding, swelling, or increased tende rness 7. Follow up the office as scheduled for you. Discharge Disposition: HOME SELF-CARE
== END 2019-10-24 11:57 | disposition home or self-care (01) ==
LOC: CATHEP 09:49 → 1SOBS 13:36 → CATHEP 10-24 11:57
PROVIDERS: ATTEND Internal Medicine Clinical Cardiac Electrophysiology
DX: I48.0 Paroxysmal atrial fibrillation (principal); I49.5 Sick sinus syndrome; I47.1 Supraventricular tachycardia; I11.9 Hypertensive heart disease without heart failure; Z45.09 Encounter for adjustment and management of other cardiac device; Z87.891 Personal history of nicotine dependence; E78.5 Hyperlipidemia, unspecified; Z86.79 Personal history of other diseases of the circulatory system; Z98.890 Other specified postprocedural states; Z79.02 Long term (current) use of antithrombotics/antiplatelets; Z79.899 Other long term (current) drug therapy; Z88.0 Allergy status to penicillin; Z88.8 Allergy status to other drugs, medicaments and biological substances; Z91.09 Other allergy status, other than to drugs and biological substances
CPT/HCPCS: 33225; 33208; 33286; 71046; C1769 ×3; C1892; C1898 ×2; C2621; J2250; J2405; J2001; J3010; J1100; J2704; Q9966

== ENCOUNTER 2020-04-17 17:17 | Observation (INO) | payer MEDICARE, OTHER ==
[2020-04-17 18:21] LABS: Basophils % (A) 0 %; Eosinophils # (A) 0.1 k/uL (0-0.7); Eosinophils % (A) 1 %; HCT 42.2 % (34.0-46.0); HGB 13.9 gm/dL (11.4-16.0); Lymphocytes # (A) 1.5 k/uL (1.0-4.8); Lymphocytes % (A) 28 %; MCH 29.2 pg (25.0-35.0); MCHC 32.9 g/dL (31.0-37.0); MCV 88.8 fL (80.0-100.0); Mean Platelet Volume 7.1; Monocytes # (A) 0.5 k/uL (0-1.0); Monocytes % (A) 8 %; Neutrophils # (A) 3.4 k/uL (1.3-7.7); Neutrophils % (A) 61 %; Platelet Count 294 k/uL (150-450); RBC 4.75 m/uL (3.80-5.40); RDW 13.2 % (11.5-15.5); WBC 5.5 k/uL (3.8-10.6)
[2020-04-17 18:33] LABS: Albumin 4.8 g/dL (3.5-5.0); Calcium 10.1 mg/dL (8.4-10.2); Potassium 4.3 mmol/L (3.5-5.1); Total Bilirubin 0.6 mg/dL (0.2-1.3); Total Protein 7.3 g/dL (6.3-8.2)
[2020-04-17 18:34] LABS: Partial Thromboplastin Time 25.8 sec (22.0-30.0); Prothrombin Time 10.7 sec (9.0-12.0)
--- NOTE | 2020-04-17 19:06 | CT ---
EXAMINATION TYPE: CT chest angio for PE DATE OF EXAM: 04/17/2020 COMPARISON: None HISTORY: Left arm swelling and pain. CT DLP: 489 mGycm Automated exposure control for dose reduction was used. CONTRAST: Performed with IV Contrast, patient injected with 81ml mL of Isovue 370. There are 3-D post processed images. Heart is enlarged. There is no pericardial effusion. There is no pleural effusion. The lungs are james r of consolidation. There is no evidence of a pulmonary mass. There is no mediastinal adenopathy. There are no hilar masses. Thoracic aorta is intact. Ascending ao rta measures 3.4 cm. There is no aneurysm or dissection. There is small hiatal hernia. There is normal contrast opacification of the pulmonary arteries. There are no filling defects. There is some spurring in the thoracic spine. I see no compression fracture. Sternum is intact. Upper abdo alexei soft tissues are intact. IMPRESSION: No evidence of pulmonary embolism. Cardiomegaly. Small hiatal hernia.
--- NOTE | 2020-04-17 19:12 | ED ---
Extremity Problem HPI - General Chief complaint: Extremity Problem,Nontraumatic Stated complaint: swollen left arm Time Seen by Provider: 04/17/20 17:27 Source: patient Mode of arrival: ambulatory Limitations: no limitations - History of Present Illness Initial comments: 74-year-old female patient presents to the emergency department today for evaluation of discomfort and swelling to the left arm. Patient states that her arm isn't swollen and discolored for the last week. States that she has developed spider veins to the upper arm. He states that her fingers are swollen. States that the arm feels tight and uncomfortable. Denies any significant pain. States that she has been having like intermittent sharp chest pains. Nothing severe. States she has been more winded with activity. Patient does have a history of atrial fibrillation and does take Savaysa as a blood thinning medication. Patient denies history of DVT with states that she has multiple family members who have had them. Patient denies any recent rash, fever, chills, cough, abdominal pain, nausea, vomiting, diarrhea, constipation, back pain, numbness, tingling, dizziness, weakness, hematuria, dysuria, urinary urgency, urinary frequency, headache, visual changes, or any other complaints. - Related Data Home Medications Medication Instructions Recorded Confirmed Edoxaban Tosylate [Savaysa] 60 mg PO DAILY 12/29/14 04/17/20 L.acidoph,Paracasei, B.lactis 1 cap PO DAILY 12/15/17 04/17/20 [Probiotic] Multivit-Min/Iron/Folic/Lutein 1 tab PO DAILY 12/15/17 04/17/20 [Centrum Silver Women Tablet] Cetirizine HCl [Zyrtec] 10 mg PO DAILY 01/05/19 04/17/20 amLODIPine BESYLATE 5 mg PO DAILY 01/05/19 04/17/20 Cinnamon Bark [Cinnamon] 500 mg PO DAILY 09/11/19 04/17/20 Lutein 20 mg PO DAILY 10/18/19 04/17/20 Flecainide [Tambocor] 50 mg PO BID 04/17/20 04/17/20 Turmeric(Unknown Dose) 1 tab PO DAILY 04/17/20 04/17/20 Vitamin D3(Unknown Dose) 1 tab PO DAILY 04/17/20 04/17/20 Previous Rx's Medication Instructions Recorded Metoprolol Succinate (ER) [Toprol 50 mg PO DAILY #90 tab 10/23/19 XL] Allergies Allergy/AdvReac Type Severity Reaction Status Date / Time adhesive tape Allergy Rash/Hives Verified 04/17/20 21:33 apixaban [From Eliquis] Allergy skin on Verified 04/17/20 21:33 face turned red, rash losartan [From Cozaar] Allergy Rash/Hives Verified 04/17/20 21:33 Penicillins Allergy Rash/Hives Verified 04/17/20 21:33 rivaroxaban [From Xarelto] AdvReac Blood in Verified 04/17/20 21:33 stool cosmetics Allergy Rash/Hives Uncoded 04/17/20 21:33 detergent Allergy Rash/Hives Uncoded 04/17/20 21:33 metal Allergy Rash/Hives Uncoded 04/17/20 21:33 Review of Systems ROS Statement: Those systems with pertinent positive or pertinent negative responses have been documented in the HPI. ROS Other: All systems not noted in ROS Statement are negative. Past Medical History Past Medical History: Atrial Fibrillation, Chest Pain / Angina, GERD/Reflux, Hypertension, Osteoarthritis (OA), Skin Disorder Additional Past Medical History / Comment(s): See Dr Graves's H&P, varicose veins, hiatal hernia, fatty liver, eczema History of Any Multi-Drug Resistant Organisms: None Reported Past Surgical History: Back Surgery, Cardiac Ablation, Cholecystectomy, Hysterectomy, Joint Replacement, Orthopedic Surgery Additional Past Surgical History / Comment(s): Total L knee replacement, Recto/cystocele repair with hysterectomy, laminectomy, left knee arthroscopy, rayna cataracts Past Anesthesia/Blood Transfusion Reactions: Previous Problems w/ Anesthesia, Postoperative Nausea & Vomiting (PONV) Additional Past Anesthesia/Blood Transfusion Reaction / Comment(s): uncontrollable crying post op one time, no hx blood transfusion Past Psychological History: No Psychological Hx Reported Smoking Status: Never smoker Past Alcohol Use History: Occasional Past Drug Use History: None Reported - Past Family History Mother Family Medical History: Cancer Additional Family Medical History / Comment(s): Colon CA Father Additional Family Medical History / Comment(s): aortic aneurysm Son(s) Family Medical History: Pulmonary Embolus Additional Family Medical History / Comment(s): pulmonic embolism Brother(s) Family Medical History: Cancer Additional Family Medical History / Comment(s): colon CA Sister(s) Family Medical History: Cancer, Deep Vein Thrombosis (DVT) General Exam Limitations: no limitations General appearance: alert, in no apparent distress, other (This is a well- developed, well-nourished elderly female patient in no acute distress. Vital signs upon presentation are temperature 98.2F, pulse 89, respirations 19, blood pressure 140/75, pulse ox 98% on room air.) Eye exam: Present: normal appearance, PERRL, EOMI. Absent: scleral icterus, conjunctival injection, periorbital swelling ENT exam: Present: normal exam, normal oropharynx, mucous membranes moist Respiratory exam: Present: normal lung sounds bilaterally. Absent: respiratory distress, wheezes, rales, rhonchi, stridor Cardiovascular Exam: Present: regular rate, normal rhythm, normal heart sounds. Absent: systolic murmur, diastolic murmur, rubs, gallop, clicks GI/Abdominal exam: Present: soft, normal bowel sounds. Absent: distended, tenderness, guarding, rebound, rigid Extremities exam: Present: full ROM, normal capillary refill, other (There is generalized swelling noted to the left arm, there is purplish discoloration to the arm, multiple areas of telangiectasia to the left upper arm. Skin is warm and dry. Cap refills less than 3 seconds. Radial pulses 2+ and equal bilaterally.). Absent: normal inspection, tenderness, pedal edema, joint swelling, calf tenderness Neurological exam: Present: alert, oriented X3, CN II-XII intact Psychiatric exam: Present: normal affect, normal mood Skin exam: Present: warm, dry, intact, normal color. Absent: rash Course Vital Signs 04/17/20 04/17/20 04/17/20 17:19 18:21 19:23 Temperature 98.2 F Pulse Rate 89 Respiratory 19 16 16 Rate Blood Pressure 148/75 O2 Sat by Pulse 98 Oximetry 04/17/20 04/17/20 04/17/20 19:53 20:35 20:57 Temperature 98.1 F Pulse Rate 63 122 H 140 H Respiratory 16 18 18 Rate Blood Pressure 151/91 117/102 122/92 O2 Sat by Pulse 99 98 98 Oximetry 04/17/20 21:15 Temperature Pulse Rate 114 H Respiratory 16 Rate Blood Pressure O2 Sat by Pulse 97 Oximetry Medical Decision Making - Medical Decision Making 74-year-old female patient presents to the emergency department today for evaluation of left arm swelling and discoloration. Physical examination did rev eal generally swollen left arm with a minor purpleish discoloration, there is evidence for a telangiectasia to the left upper arm. Patient states the arm is been like this for the last 2-3 weeks. She has good neurovascular status to the arm. Ultrasound of the arm is negative for DVT. We did perform CTA of the chest for evaluation due to complaints of intermittent sharp chest pains and shortness of breath especially with activity, this is negative for pulmonary embolism. Labs reviewed and are unremarkable. Patient's EKG did reveal atrial flutter with RVR. Patient was on a heart monitor and exhibited periods of A. fib and atrial flutter with rates as high as 130s. Patient blood pressure is stable. Case was discussed with cardiology who recommended Cardizem drip for rate control. Dr. Rosario from [facility] is accepting. - Lab Data Result diagrams: 04/17/20 18:08 04/17/20 18:08 Lab Results 04/17/20 04/17/20 04/17/20 Range/Units 18:08 18:08 18:08 WBC 5.5 (3.8-10.6) k/uL RBC 4.75 (3.80-5.40) m/uL Hgb 13.9 (11.4-16.0) gm/dL Hct 42.2 (34.0-46.0) % MCV 88.8 (80.0-100.0) fL MCH 29.2 (25.0-35.0) pg MCHC 32.9 (31.0-37.0) g/dL RDW 13.2 (11.5-15.5) % Plt Count 294 (150-450) k/uL Neutrophils % 61 % Lymphocytes % 28 % Monocytes % 8 % Eosinophils % 1 % Basophils % 0 % Neutrophils # 3.4 (1.3-7.7) k/uL Lymphocytes # 1.5 (1.0-4.8) k/uL Monocytes # 0.5 (0-1.0) k/uL Eosinophils # 0.1 (0-0.7) k/uL Basophils # 0.0 (0-0.2) k/uL PT 10.7 (9.0-12.0) sec INR 1.0 (<1.2) APTT 25.8 (22.0-30.0) sec Sodium 136 L (137-145) mmol/L Potassium 4.3 (3.5-5.1) mmol/L Chloride 105 (98-107) mmol/L Carbon Dioxide 22 (22-30) mmol/L Anion Gap 9 mmol/L BUN 20 H (7-17) mg/dL Creatinine 0.86 (0.52-1.04) mg/dL Est GFR (CKD-EPI)AfAm 79 (>60 ml/min/1.73 sqM) Est GFR (CKD-EPI)NonAf 68 (>60 ml/min/1.73 sqM) Glucose 96 (74-99) mg/dL Calcium 10.1 (8.4-10.2) mg/dL Magnesium (1.6-2.3) mg/dL Total Bilirubin 0.6 (0.2-1.3) mg/dL AST 31 (14-36) U/L ALT 19 (4-34) U/L Alkaline Phosphatase 61 (38-126) U/L Troponin I (0.000-0.034) ng/mL Total Protein 7.3 (6.3-8.2) g/dL Albumin 4.8 (3.5-5.0) g/dL 04/17/20 04/17/20 Range/Units 18:08 18:08 WBC (3.8-10.6) k/uL RBC (3.80-5.40) m/uL Hgb (11.4-16.0) gm/dL Hct (34.0-46.0) % MCV (80.0-100.0) fL MCH (25.0-35.0) pg MCHC (31.0-37.0) g/dL RDW (11.5-15.5) % Plt Count (150-450) k/uL Neutrophils % % Lymphocytes % % Monocytes % % Eosinophils % % Basophils % % Neutrophils # (1.3-7.7) k/uL Lymphocytes # (1.0-4.8) k/uL Monocytes # (0-1.0) k/uL Eosinophils # (0-0.7) k/uL Basophils # (0-0.2) k/uL PT (9.0-12.0) sec INR (<1.2) APTT (22.0-30.0) sec Sodium (137-145) mmol/L Potassium (3.5-5.1) mmol/L Chloride (98-107) mmol/L Carbon Dioxide (22-30) mmol/L Anion Gap mmol/L BUN (7-17) mg/dL Creatinine (0.52-1.04) mg/dL Est GFR (CKD-EPI)AfAm (>60 ml/min/1.73 sqM) Est GFR (CKD-EPI)NonAf (>60 ml/min/1.73 sqM) Glucose (74-99) mg/dL Calcium (8.4-10.2) mg/dL Magnesium 2.0 (1.6-2.3) mg/dL Total Bilirubin (0.2-1.3) mg/dL AST (14-36) U/L ALT (4-34) U/L Alkaline Phosphatase (38-126) U/L Troponin I <0.012 (0.000-0.034) ng/mL Total Protein (6.3-8.2) g/dL Albumin (3.5-5.0) g/dL - EKG Data -: EKG Interpreted by [facility] EKG Comments: EKG obtained at 1823 shows atrial flutter with a variable AV block. Ventricular rate is 123, QRS duration 86, QT 334, QTC 478. No evidence of ST elevation or depression. - Radiology Data Radiology results: report reviewed, image reviewed CT chest angiography for PE was obtained. Report was reviewed in its entirety. Impression by Dr. Summers shows no evidence of pulmonary embolism. Cardiomegaly. Small hiatal hernia. Disposition Clinical Impression: Left arm swelling, Atrial flutter Disposition: ADMITTED IP TO THIS [facility] Condition: Serious Decision to Admit Reason: Admit from EC Decision Date: 04/17/20 Decision Time: 21:38
--- NOTE | 2020-04-17 20:03 | US ---
EXAMINATION TYPE: US venous doppler duplex UE LT DATE OF EXAM: 04/17/2020 COMPARISON: NONE CLINICAL HISTORY: SOB; Poss DVT. SOB. Swelling in left arm x 2 weeks. No hx of DVT. Patient takes Олег aysa. SIDE PERFORMED: Left Left Arm: No evidence of DVT in veins imaged at this time within the left upper extremity. Ulnar vein s appear small; unable to show color flow due to small vessels. Ulnar veins do compress. IMPRESSION: No sign of deep vein thrombosis in the left arm.
[2020-04-17] MEDS ORDERED: METOPROLOL TARTRATE 5 MG/5 ML VIAL IVP STA (21:05)
[2020-04-17] MEDS ORDERED: NALOXONE 0.4 MG/ML 1 ML VIAL IV PRN (21:32)
[2020-04-17] MEDS ORDERED: DILTIAZEM DRIP BOLUS FROM BAG 1 MG SOLN IV ONE (21:38)
[2020-04-17] MEDS ORDERED: SODIUM CHLORIDE 0.9% 1,000 ML IV SCH (21:45)
[2020-04-17] MEDS ORDERED: DILTIAZEM 125 MG in SODIUM CHLORIDE 0.9% 100 ML IV SCH (22:00)
--- NOTE | 2020-04-18 00:49 | P.HPIM ---
History of Present Illness H&P Date: 04/17/20 The patient is a 74-year-old female with a PMH of paroxysmal A. fib (on Savaysa) who presents to the ED with complaints of left arm swelling. The patient reports that her symptoms started 2 weeks ago suddenly. She recalls being in the yard working with her plants though does not recall any specific trauma or insect bite prior to the onset of her symptoms. She notes that her arm became swollen and blue/purple and she developed spiderlike veins on the upper arm. She reports that the swelling has been improving over the past few days. She denied experiencing any pain in the arm. He further denied chest discomfort, shortness of breath, palpitations, nausea, vomiting, or diaphoresis. Of note, the patient had a pacemaker placed in September for bradycardia.patient denied any prior history of DVT or any additional blood clots, though did note that multiple family members due to severe pulmonary emboli. She further denied fever, chills, cough, or abdominal pain. In the emergency room, the patient was noted to be in A. fib with RVR on EKG at 123 bpm. Left upper extremity duplex was negative for DVT with chest CTA showing cardiomegaly with no evidence of PE. Review of Systems Pertinent positives and negatives as discussed in HPI, a complete review of systems was performed and all other systems are negative. Past Medical History Past Medical History: Atrial Fibrillation, Chest Pain / Angina, GERD/Reflux, H ypertension, Osteoarthritis (OA), Skin Disorder Additional Past Medical History / Comment(s): See Dr Graves's H&P, varicose veins, hiatal hernia, fatty liver, eczema History of Any Multi-Drug Resistant Organisms: None Reported Past Surgical History: Back Surgery, Cardiac Ablation, Cholecystectomy, Hysterectomy, Joint Replacement, Orthopedic Surgery Additional Past Surgical History / Comment(s): Total L knee replacement, Recto/cystocele repair with hysterectomy, laminectomy, left knee arthroscopy, rayna cataracts Past Anesthesia/Blood Transfusion Reactions: Previous Problems w/ Anesthesia, Postoperative Nausea & Vomiting (PONV) Additional Past Anesthesia/Blood Transfusion Reaction / Comment(s): uncontrollable crying post op one time, no hx blood transfusion Past Psychological History: No Psychological Hx Reported Smoking Status: Never smoker Past Alcohol Use History: Occasional Past Drug Use History: None Reported - Past Family History Mother Family Medical History: Cancer Additional Family Medical History / Comment(s): Colon CA Father Additional Family Medical History / Comment(s): aortic aneurysm Son(s) Family Medical History: Pulmonary Embolus Additional Family Medical History / Comment(s): pulmonic embolism Brother(s) Family Medical History: Cancer Additional Family Medical History / Comment(s): colon CA Sister(s) Family Medical History: Cancer, Deep Vein Thrombosis (DVT) Medications and Allergies Home Medications Medication Instructions Recorded Confirmed Type Edoxaban Tosylate [Savaysa] 60 mg PO DAILY 12/29/14 04/17/20 History L.acidoph,Paracasei, B.lactis 1 cap PO DAILY 12/15/17 04/17/20 History [Probiotic] Multivit-Min/Iron/Folic/Lutein 1 tab PO DAILY 12/15/17 04/17/20 History [Centrum Silver Women Tablet] Cetirizine HCl [Zyrtec] 10 mg PO DAILY 01/05/19 04/17/20 History amLODIPine BESYLATE 5 mg PO DAILY 01/05/19 04/17/20 History Cinnamon Bark [Cinnamon] 500 mg PO DAILY 09/11/19 04/17/20 History Lutein 20 mg PO DAILY 10/18/19 04/17/20 History Metoprolol Succinate (ER) [Toprol 50 mg PO DAILY #90 tab 10/23/19 04/17/20 Rx XL] Flecainide [Tambocor] 50 mg PO BID 04/17/20 04/17/20 History Turmeric(Unknown Dose) 1 tab PO DAILY 04/17/20 04/17/20 History Vitamin D3(Unknown Dose) 1 tab PO DAILY 04/17/20 04/17/20 History Allergies Allergy/AdvReac Type Severity Reaction Status Date / Time adhesive tape Allergy Rash/Hives Verified 04/17/20 21:33 apixaban [From Eliquis] Allergy skin on Verified 04/17/20 21:33 face turned red, rash losartan [From Cozaar] Allergy Rash/Hives Verified 04/17/20 21:33 Penicillins Allergy Rash/Hives Verified 04/17/20 21:33 rivaroxaban [From Xarelto] AdvReac Blood in Verified 04/17/20 21:33 stool cosmetics Allergy Rash/Hives Uncoded 04/17/20 21:33 detergent Allergy Rash/Hives Uncoded 04/17/20 21:33 metal Allergy Rash/Hives Uncoded 04/17/20 21:33 Physical Exam Vitals: Vital Signs Temp Pulse Resp BP Pulse Ox 04/17/20 21:15 114 H 16 97 04/17/20 20:57 140 H 18 122/92 98 04/17/20 20:35 122 H 18 117/102 98 04/17/20 19:53 98.1 F 63 16 151/91 99 04/17/20 19:23 16 04/17/20 18:21 16 04/17/20 17:19 98.2 F 89 19 148/75 98 Intake and Output 04/17/20 04/17/20 04/17/20 06:59 14:59 22:59 Other: Weight 95.254 kg General: non toxic, no distress, appears at stated age, normal weight Derm: no unusual rashes/lesions no unusual ecchymoses, warm, dry Head: atraumatic, normocephalic, symmetric Eyes: EOMI, no lid lag, anicteric sclera, pupils equal round reactive to light ENT: Nose and ears atraumatic, no thrush, no pharyngeal erythema Neck: No thyromegaly, no cervical lymphadenopathy, trachea midline, supple Mouth: no lip lesion, mucus membranes moist Cardiovascular: S1S2 irregularly irregular, no murmur, positive posterior tibial pulse bilateral, capillary refill less than 2 seconds Lungs: CTA bilateral, no rhonchi, no rales , no accessory muscle use Abdominal: soft, nontender to palpation, no guarding, no appreciable organomegaly, normal bowel sounds Ext: Left upper extremity mildly swollen, nontender, with some spider angiomas noted, no gross muscle atrophy, muscle strength 5 out of 5 in all 4 extremities grossly, no contractures, Neuro: CN II-XI grossly intact, light touch intact all 4 extremities, finger to nose within normal limits, Psych: Alert, oriented, appropriate affect Results CBC & Chem 7: 04/17/20 18:08 04/17/20 18:08 Labs: Abnormal Lab Results - Last 24 Hours (Table) 04/17/20 Range/Units 18:08 Sodium 136 L (137-145) mmol/L BUN 20 H (7-17) mg/dL Assessment and Plan Plan: A. fib with RVR, in setting of pacemaker -Continue with Cardizem infusion -Continue with home NOAC (Savaysa) -Cardiology consult -Cardiac monitoring Left upper extremity swelling -Duplex negative for DVT -Check d-dimer and consider asking the radiologist to reread the ultrasound, though unclear why the patient would have failure of anticoagulant Hypertension -C/w home Norvasc DVT prophylaxis -Savaysa Discussed with: Patient Anticipated discharge date: 04/[address]: Home A total of 40 minutes was spent on the care of this complex patient more than 50% of the time was spent in counseling and care coordination.
[2020-04-18] MEDS: FLECAINIDE 50 MG TAB PO SCH ×2 (02:29→09:40)
[2020-04-18] MEDS ORDERED: METOPROLOL SUCCINATE (ER) 50 MG TAB.ER.24H PO SCH ×2 (09:00→11:45)
[2020-04-18] MEDS ORDERED: amLODIPine 5 MG TAB PO SCH (09:00)
[2020-04-18] MEDS ORDERED: EDOXABAN TOSYLATE 60 MG TABLET PO SCH (09:00)
[2020-04-18 09:33] VITALS: RESP 18
--- NOTE | 2020-04-18 10:37 | P.DS ---
Providers Date of admission: 04/17/20 21:41 Attending physician: Babita Rosario MD Consults: 04/18/20 00:58 Consult Physician Routine Consulting Provider: Murali Flores Consult Reason/Comments: afib Do you want consulting provider notified?: Yes Primary care physician: Leon Cerrato [facility] Course: 1. A Fib with RVR 2. Left Arm Swelling 3. HTN 74 year old woman with AFib, HTN, pacemaker placed for hx of bradycardia presented for evaluation of left arm swelling and concern for DVT. US was negative for UE blood clot. CTA was negative for pulmonary embolism. Pt reported her swelling decreased overnight, and she felt back to her usual state of health. Pt was discharged with no medication changes with instructions to f/u with PCP. Patient Condition at Discharge: Serious Plan - Discharge Summary Discharge Rx Participant: No New Discharge Prescriptions: Continue Edoxaban Tosylate [Savaysa] 60 mg PO DAILY Multivit-Min/Iron/Folic/Lutein [Centrum Silver Women Tablet] 1 tab PO DAILY L.acidoph,Paracasei, B.lactis [Probiotic] 1 cap PO DAILY Cetirizine HCl [Zyrtec] 10 mg PO DAILY amLODIPine BESYLATE 5 mg PO DAILY Cinnamon Bark [Cinnamon] 500 mg PO DAILY Lutein 20 mg PO DAILY Metoprolol Succinate (ER) [Toprol XL] 50 mg PO DAILY #90 tab Vitamin D3(Unknown Dose) 1 tab PO DAILY Flecainide [Tambocor] 50 mg PO BID Turmeric(Unknown Dose) 1 tab PO DAILY Discharge Medication List Edoxaban Tosylate [Savaysa] 60 mg PO DAILY 12/29/14 [History] L.acidoph,Paracasei, B.lactis [Probiotic] 1 cap PO DAILY 12/15/17 [History] Multivit-Min/Iron/Folic/Lutein [Centrum Silver Women Tablet] 1 tab PO DAILY 12/15/17 [History] Cetirizine HCl [Zyrtec] 10 mg PO DAILY 01/05/19 [History] amLODIPine BESYLATE 5 mg PO DAILY 01/05/19 [History] Cinnamon Bark [Cinnamon] 500 mg PO DAILY 09/11/19 [History] Lutein 20 mg PO DAILY 10/18/19 [History] Metoprolol Succinate (ER) [Toprol XL] 50 mg PO DAILY #90 tab 10/23/19 [Rx] Flecainide [Tambocor] 50 mg PO BID 04/17/20 [History] Turmeric(Unknown Dose) 1 tab PO DAILY 04/17/20 [History] Vitamin D3(Unknown Dose) 1 tab PO DAILY 04/17/20 [History] Follow up Appointment(s)/Referral(s): Leon Cerrato MD [Primary Care Provider] - 1-2 days Discharge Disposition: HOME SELF-CARE
[2020-04-18 18:16] VITALS: BP 119/72; PULSE 72; TEMP 97.8
== END 2020-04-18 23:24 | disposition home or self-care (01) ==
LOC: EC 17:17 → 3NCARDOBS 21:41 → UNDODISOB 04-18 10:45
PROVIDERS: ADMIT Internal Medicine; ATTEND Internal Medicine
DX: I48.91 Unspecified atrial fibrillation (principal); M79.89 Other specified soft tissue disorders; I48.92 Unspecified atrial flutter; K21.9 Gastro-esophageal reflux disease without esophagitis; I11.9 Hypertensive heart disease without heart failure; M19.90 Unspecified osteoarthritis, unspecified site; L30.9 Dermatitis, unspecified; I83.90 Asymptomatic varicose veins of unspecified lower extremity; K44.9 Diaphragmatic hernia without obstruction or gangrene; K76.0 Fatty (change of) liver, not elsewhere classified; I78.1 Nevus, non-neoplastic; I44.39 Other atrioventricular block; R00.1 Bradycardia, unspecified; Z79.01 Long term (current) use of anticoagulants; Z82.49 Family history of ischemic heart disease and other diseases of the circulatory system; Z79.899 Other long term (current) drug therapy; Z91.09 Other allergy status, other than to drugs and biological substances; Z88.8 Allergy status to other drugs, medicaments and biological substances; Z88.0 Allergy status to penicillin; Z91.048 Other nonmedicinal substance allergy status; Z98.890 Other specified postprocedural states; Z90.49 Acquired absence of other specified parts of digestive tract; Z90.710 Acquired absence of both cervix and uterus; Z96.652 Presence of left artificial knee joint; Z87.42 Personal history of other diseases of the female genital tract; Z98.41 Cataract extraction status, right eye; Z98.42 Cataract extraction status, left eye; Z91.89 Other specified personal risk factors, not elsewhere classified; Z87.898 Personal history of other specified conditions; Z95.0 Presence of cardiac pacemaker; Z66 Do not resuscitate; Z80.0 Family history of malignant neoplasm of digestive organs; Z80.9 Family history of malignant neoplasm, unspecified
CPT/HCPCS: 96376; 96365; 99285; 36415; 93005; 85379; 80053; 83735; 84484; 85025; 85610; 85730; 93971; 71275; G0378 ×2; Q9967

== ENCOUNTER → 2020-12-20 | Outpatient (CLI) | payer MEDICARE, OTHER ==
[2020-12-20 17:13] LABS: HCT 39.9 % (34.0-46.0); MCH 31.7 pg (25.0-35.0); MCHC 35.2 g/dL (31.0-37.0); MCV 90.2 fL (80.0-100.0); Mean Platelet Volume 7.1; Platelet Count 256 k/uL (150-450); RBC 4.42 m/uL (3.80-5.40); RDW 13.4 % (11.5-15.5); WBC 6.5 k/uL (3.8-10.6)
== END | disposition home or self-care (01) ==
LOC: LABWHC1 16:01
PROVIDERS: ATTEND Internal Medicine Clinical Cardiac Electrophysiology
DX: Z01.818 Encounter for other preprocedural examination (principal); I48.11 Longstanding persistent atrial fibrillation
CPT/HCPCS: 36415; 80051; 82565; 84520; 85027

== ENCOUNTER 2020-12-24 05:54 | Day surgery (SDC) | payer MEDICARE, OTHER ==
[2020-12-19 12:57] VITALS: BMI 36.6
[2020-12-24] MEDS ORDERED: SODIUM CHLORIDE 0.9% 1,000 ML IV SCH (06:06)
[2020-12-24] MEDS ORDERED: SODIUM CHLORIDE 0.9% 1,000 ML IV ONE (06:38)
[2020-12-24 06:40] VITALS: TEMP 99.1
[2020-12-24] MEDS ORDERED: PROPOFOL 10 MG/ML 20 ML VIAL IV ONE (06:58)
[2020-12-24] MEDS ORDERED: BENZOCAINE SPRAY 1 CAN MUCOUS MEM ONE (07:02)
[2020-12-24 07:18] LABS: Calcium 9.5 mg/dL (8.4-10.2)
[2020-12-24 07:51] LABS: Potassium 4.7 mmol/L (3.5-5.1)
--- NOTE | 2020-12-24 07:57 | P.TEE ---
Description of Procedure(s): Procedure performed: Transesophageal Echocardiogram with color flow doppler, pulsed wave doppler and continuous wave doppler Moderate conscious sedation: Moderate conscious sedation was supplied by anesthesia, see separate report Complications: none Indications: Symptomatic Afib, atrial tachycardia History: Patient is a pleasant 75-year-old female with history of sick sinus syndrome status post permanent pacemaker, paroxysmal atrial fibrillation, atrial tachycardia status post watchman device 11/19/2020, hypertension who has been having increased episodes of dyspnea on exertion and fatigue and was found to be in A. fib despite antiarrhythmics. Therefore the decision was made to perform FRANK/cardioversion as well as evaluate the recently placed watchman device. She was found to be in an atrial tachycardia with 2:1 condution this morning. PROCEDURE: After the risks, benefits and alternatives of the above mentioned procedure was explained in detail with the patient, informed consent was obtained. Patient was brought to the lab in a fasting state. Patient was given sedation by anesthesia. The throat was sprayed with Hurricane to anesthetize the throat. A lubricated Omni probe was then introduced into the esophagus and stomach and multiple views were obtained. 2D echo with color flow doppler, pulsed wave doppler and continuous wave doppler was utilized. Agitated saline bubbles were injected to assess for any intra-atrial shunt. The probe was then removed. Cardioversion was performed by Dr Graves, see separate note. Patient tolerated the procedure well. Patient was transferred to the post procedure area in stable and satisfactory condition. FINDINGS: 1. The aortic valve is normal-appearing and tricuspid. There is no aortic stenosis. 2. The mitral valve appears be normal with mild to moderate mitral regurgitation. 3. Tricuspid valve appears to be normal with moderate to severe tricuspid regurgitation. 4. There is a small atrial septal defect from previous transeptal procedure with left to right shunt by color flow. 5. The Watchman left atrial appendage closure device is appropriately positioned without any leak. 6. Left ventricular ejection fraction is 55-60% without wall motion abnormalities. 7. Left atrium is moderate to severely dilated
[2020-12-24 09:03] VITALS: PULSE 60
[2020-12-24 09:06] VITALS: BP 110/65; RESP 16
--- NOTE | 2020-12-24 11:42 | P.EPPROC ---
- EP Procedure Note Electrophysiology Procedure Note: Diagnosis Symptomatic atrial fibrillation with RVR, refractory to flecainide Left atrial appendage occlusion device recently implanted Awaiting assessment of placement of left atrial appendage occlusion device, 45 days postprocedure Status post implantation of a biventricular pacemaker with His bundle pacing in 2019 for sick sinus syndrome and AV node disease to avoid RV pacing Procedure Left atrial appendage occlusion device was found to be in a stable position during FRANK No left atrial mass noted Following the electrical cardioversion was performed 360 J synchronized biphasic shock converted the patient to AV sequential pacing with Bi V pacing Patient tolerated the procedure well with automated complications The Medtronic biventricular pacemaker with His bundle pacing was interrogated P waves 2.4 mV pacing impedance in the atrial lead 399 ohms, pacing threshold 0.75 V at 0.4 ms R waves 2.25 V at 1 ms, pacing impedance 627 ohms His twelve-lead pacing impedance 418 ohms and pacing threshold 1.5 V at 1 ms Impression Successful electrical cardioversion for atrial tachycardia/atrial fibrillation Stable left atrial appendage occlusion device BiV pacemaker with His bundle pacing functioning normally
== END 2020-12-24 09:00 | disposition home or self-care (01) ==
LOC: CATHCVL 05:54
PROVIDERS: ATTEND Internal Medicine Clinical Cardiac Electrophysiology
DX: I48.0 Paroxysmal atrial fibrillation (principal); I49.5 Sick sinus syndrome; I10 Essential (primary) hypertension; I47.1 Supraventricular tachycardia; K21.9 Gastro-esophageal reflux disease without esophagitis; Z95.0 Presence of cardiac pacemaker; Z95.828 Presence of other vascular implants and grafts; Z79.899 Other long term (current) drug therapy; Z79.82 Long term (current) use of aspirin; Z88.0 Allergy status to penicillin; Z88.8 Allergy status to other drugs, medicaments and biological substances; Z91.09 Other allergy status, other than to drugs and biological substances
CPT/HCPCS: 93312; 93320; 93005; 93325; 92960; 80048; 87635; J2704

== ENCOUNTER → 2021-05-27 | Outpatient (CLI) | payer MEDICARE, OTHER ==
--- NOTE | 2021-05-28 09:02 | XR ---
Right ankle and right foot HISTORY:M79.673,M25.571 2 views of the right ankle, 2 views of the right foot, no comparisons There is a plantar calcaneal spur present. Bone mineralization is reduced. Soft tissue swelling noted especially at the ankle. There are degenerative changes at the intertarsal joints with marginal spur ring. Enthesophyte present at the insertion of the Achilles tendon. Some degenerative change present at the first metatarsophalangeal joint. There is no fracture or dislocation. Somewhat prominent navic ular is noted. IMPRESSION: Osteoarthritis, osteopenia, soft tissue swelling.
== END | disposition home or self-care (01) ==
LOC: RADXRMAIN 17:38
PROVIDERS: ATTEND Internal Medicine
DX: M19.071 Primary osteoarthritis, right ankle and foot (principal)

== ENCOUNTER → 2021-11-19 | Outpatient (CLI) | payer MEDICARE, OTHER ==
--- NOTE | 2021-11-21 13:32 | MM ---
Reason for exam: screening (asymptomatic). Last mammogram was performed 1 year and 1 month ago. History: Patient is postmenopausal. Family history of breast cancer in maternal aunt at age 70. Physical Findings: A clinical breast exam by your physician is recommended on an annual basis and results should be correlated with mammographic findings. MG 3D Screening Mammo W/Cad Bilateral CC and MLO view(s) were taken. Prior study comparison: October 24, 2020, mammogram, performed at [facility]. May 08, 2019, mammogram, performed at [facility]. There are scattered fibroglandular densities. There is chronic nodularity in the right breast centrally. Generator device projects over the left pectoralis. Scattered benign round calcifications and bilateral vascular calcifications. No significant changes when compared with prior studies. ASSESSMENT: Benign, BI-RAD 2 RECOMMENDATION: Routine screening mammogram of both breasts in 1 year.
== END | disposition home or self-care (01) ==
LOC: RADMAMWWP 13:57
PROVIDERS: ATTEND Internal Medicine
DX: Z12.31 Encounter for screening mammogram for malignant neoplasm of breast (principal); Z78.0 Asymptomatic menopausal state; Z80.3 Family history of malignant neoplasm of breast
CPT/HCPCS: 77063; 77067

== ENCOUNTER → 2021-12-24 | Outpatient (CLI) | payer MEDICARE, OTHER ==
[2021-12-25 01:00] LABS: African American GFR (CKD) 58.6 (60.0-200.0); Anion Gap 9.3 mmol/L (10.00-18.00); Blood Urea Nitrogen 20.4 mg/dL (9.0-27.0); Carbon Dioxide 26.7 mmol/L (20.0-27.5); Non-African American GFR(CKD) 50.5 (60.0-200.0); Potassium 4.8 mmol/L (3.5-5.5)
[2021-12-25 01:09] LABS: HCT 40.3 % (37.2-46.3); HGB 12.9 g/dL (12.0-15.0); MCH 29.3 pg (27.0-32.0); MCV 91.4 fL (80.0-97.0); Mean Platelet Volume 9.7 fL (9.5-12.2); NRBC Per 100 WBC 0 /100 WBCS (0.0-0.0); Platelet Count 278 X 10*3/uL (140-440); RBC 4.41 X 10*6/uL (4.10-5.20); RDW 13.2 % (11.5-14.5); WBC 4.83 X 10*3/uL (4.50-10.00)
== END | disposition home or self-care (01) ==
LOC: LABPAT 15:44
PROVIDERS: ATTEND Internal Medicine Clinical Cardiac Electrophysiology
DX: Z01.812 Encounter for preprocedural laboratory examination (principal); Q21.1 Atrial septal defect
CPT/HCPCS: 80051; 82565; 84520; 85027

== ENCOUNTER → 2022-01-21 | Outpatient (CLI) | payer MEDICARE, OTHER ==
--- NOTE | 2022-01-22 08:17 | XR ---
Lumbar spine HISTORY: M [age], right hip pain 3 views of the lumbar spine Surgical clips are present in the right upper quadrant. There is a levoscoliosis centered at L3. Multilevel spondylosis is present. Bone mineralization is re duced. Mild anterolisthesis grade 1 L2-3. Vacuum phenomenon present at L3-4, L4-5 and L2-3. Sclerosis present in the posterior elements of the lower lumbar spine. Minimal retrolisthesis grade 1 L5-S1 li win degenerative. Lumbar vertebral bodies show preserved height. There is multilevel spondylosis. IMPRESSION: Degenerative disc disease, facet arthropathy, scoliosis and osteopenia.
--- NOTE | 2022-01-22 08:20 | XR ---
EXAMINATION TYPE: XR Hip Bilateral and AP pelvis DATE OF EXAM: 01/21/2022 COMPARISON: NONE HISTORY: M 56.50, right hip pain, swelling minus TECHNIQUE: A single AP view of the pelvis is obtained. Two views of the bilateral hips are obtained. FINDINGS: There is no acute fracture/dislocation evident in the pelvis. The hip and sacroiliac join ts appear symmetric and unremarkable. The overlying soft tissue appears unremarkable. Probable vascu lar calcifications are present within the pelvis. Degenerative disc changes and scoliotic curvature a gain noted in the lumbar spine as reported on lumbar spine same date. Two views of bilateral hips show no acute fracture or dislocation. No focal lytic or sclerotic lesio n seen in the proximal bilateral femurs. The overlying soft tissue is unremarkable. There is some r emodeling of the femoral heads, concentric joint space loss, marginal spurring consistent with osteoa rthritis. IMPRESSION: There is no acute fracture or dislocation in the pelvis or bilateral hips. Osteoarthriti s of the hips suspected.
== END | disposition home or self-care (01) ==
LOC: RADXRMAIN 16:01
PROVIDERS: ATTEND Internal Medicine
DX: M47.816 Spondylosis without myelopathy or radiculopathy, lumbar region (principal); M51.36 Other intervertebral disc degeneration, lumbar region; M85.88 Other specified disorders of bone density and structure, other site; M41.86 Other forms of scoliosis, lumbar region; M25.551 Pain in right hip
CPT/HCPCS: 72100; 73521

== ENCOUNTER → 2022-01-21 | Outpatient (CLI) | payer MEDICARE, OTHER ==
--- NOTE | 2022-01-22 10:03 | US ---
EXAMINATION TYPE: US venous doppler duplex LE DATE OF EXAM: 01/21/2022 5:07 PM COMPARISON: NONE CLINICAL HISTORY: RT leg swelling R22.41. right leg edema SIDE PERFORMED: bilateral TECHNIQUE: The lower extremity deep venous system is examined utilizing real time linear array sonog ricarda with graded compression, doppler sonography and color-flow sonography. VESSELS IMAGED: Common Femoral Vein Deep Femoral Vein Greater Saphenous Vein * Femoral Vein Popliteal Vein Small Saphenous Vein * Proximal Calf Veins (* superficial vessels) Right Leg: no evidence of DVT Left Leg: no evidence of DVT IMPRESSION: 1. Bilateral lower extremity ultrasound negative for deep venous thrombosis.
== END | disposition home or self-care (01) ==
LOC: RADUSWWP 16:30
PROVIDERS: ATTEND Internal Medicine
DX: R22.41 Localized swelling, mass and lump, right lower limb (principal)
CPT/HCPCS: 93970

== ENCOUNTER → 2022-02-23 | Outpatient (CLI) | payer MEDICARE, OTHER ==
[2022-02-23 23:59] LABS: African American GFR (CKD) 64.4 (60.0-200.0); Albumin 4.6 g/dL (3.8-4.9); Albumin/Globulin Ratio 2.29 (1.60-3.17); BUN/Creat Ratio 23.22 Ratio (12.00-20.00); Blood Urea Nitrogen 23.2 mg/dL (9.0-27.0); Calcium 10.2 mg/dL (8.7-10.3); Carbon Dioxide 30.3 mmol/L (20.0-27.5); Non-African American GFR(CKD) 55.5 (60.0-200.0); Potassium 4.1 mmol/L (3.5-5.5); Total Bilirubin 0.3 mg/dL (0.30-1.20); Total Protein 6.5 g/dL (6.2-8.2)
[2022-02-24 01:29] LABS: Appearance,Urine Clear (Clear); Bilirubin,Urine Negative (Negative); Blood,Urine Negative (Negative); Color,Urine Yellow (Yellow); Ketones,Urine Negative (Negative); Nitrite,Urine Negative (Negative); PH, Urine 6.5 (5.0-8.0); Specific Gravity,Urine 1.007 (1.001-1.030); Urobilinogen,Urine 0.2 (0.2,1.0)
[2022-02-24 14:39] LABS: Free Kappa Lt Chain Qnt, Serum 1.58 mg/dL (0.33-1.94); Free Lambda Lt Chain Qnt, Seru 1.08 mg/dL (0.57-2.63)
== END | disposition home or self-care (01) ==
LOC: LABWHC1 15:59
PROVIDERS: ATTEND Internal Medicine Interventional Cardiology
DX: E85.4 Organ-limited amyloidosis (principal)
CPT/HCPCS: 36415; 80053; 81003; 82085; 82550; 83883; 84156; 86334; 86335

== ENCOUNTER → 2022-05-18 | Outpatient (CLI) | payer MEDICARE, OTHER ==
--- NOTE | 2022-05-18 18:47 | CT ---
EXAMINATION TYPE: CT lumbar spine wo con DATE OF EXAM: 05/18/2022 COMPARISON: None HISTORY: spondylosis CT DLP: 1365.7 mGycm CONTRAST: None TECHNIQUE: CT of the lumbar spine is performed on a spiral scan at 3 mm thick sections. Reconstructed images are performed in the coronal and sagittal planes. FINDINGS: T11-12: No focal disc herniation or significant disc bulge is evident. No spinal canal stenosis or neural foraminal stenosis is present. T12-L1: No focal disc herniation or significant disc bulge is evident. No spinal canal stenosis or neural foraminal stenosis is present. L1-L2: Posterior disc space narrowing is present. There is mild residual residual disc bulge with ant erior thecal sac flattening. No spinal canal stenosis. There may be mild to moderate foraminal narrow ing. L2-L3: There is a grade 1 spondylolisthesis of L2 anterior L3. Disc uncovering has moderate anterior thecal sac compression. Facet hypertrophy and posterior lateral thecal sac impression with ligamentum flavum laxity is present. This is contributing to spinal canal stenosis. Moderate bilateral foramina l narrowing is present. L3-L4: There is loss of disc height at this level. Vacuum disc phenomenon is present. Residual disc b ulge is present with moderate intrathecal sac compression. Facet hypertrophy and ligamentum flavum la xity is contributing to spinal canal stenosis. Moderate left and moderate to severe right foraminal s tenosis is present. L4-L5: There is loss of disc height at this level. Residual disc is anterior thecal sac contact. Face t hypertrophy is present. There appears to be a left hemilaminectomy facet hypertrophy is present. Th ere is moderate left and moderate to severe right foraminal stenosis. L5-S1: There is loss of disc height with disc desiccation present. Facet hypertrophy is present. Vacu um disc phenomenon is present. Severe bilateral foraminal stenosis is present. Mild scoliosis through the lumbar spine with convexity to the left IMPRESSION: 1. Spinal canal stenosis secondary to disc bulging and facet hypertrophy and ligamentum flavum laxit y L3-4 and L2-3. 2. Multiple levels loss of disc height essentially throughout the lumbar spine. Vacuum disc phenomeno n is present L3-4 through L5-S1. 3. Multilevel foraminal stenosis greatest bilaterally at L5-S1 and on the right at L3-4 more moderate foraminal narrowing is in the remaining lumbar spine.
== END | disposition home or self-care (01) ==
LOC: RADCTMAIN 14:12
PROVIDERS: ATTEND Physical Medicine & Rehabilitation
DX: M51.26 Other intervertebral disc displacement, lumbar region (principal); M48.061 Spinal stenosis, lumbar region without neurogenic claudication
CPT/HCPCS: 72131

== ENCOUNTER → 2022-11-13 | Outpatient (CLI) | payer MEDICARE ==
--- NOTE | 2022-11-13 11:16 | US ---
EXAMINATION TYPE: US kidneys/renal and bladder DATE OF EXAM: 11/13/2022 COMPARISON: NONE CLINICAL HISTORY: N18.31 STAGE 3 CKD. EXAM MEASUREMENTS: Right Kidney: 11.1 x 3.9 x 4.2 cm Left Kidney: 9.5 x 4.8 x 4.6 cm Post Void Residual Volume: 12.1 mL Patient of large body habitus, technically difficult study. Right Kidney: prominent renal pelvis Left Kidney: prominent renal pelvis lateral echogenic foci measuring 0.5 x 0.2 x 0.4 Bladder: wnl Normal Post Void Residual: normal Limited examination due to patient's body habitus. Mildly prominent bilateral renal pelvises without overt hydronephrosis. Nonobstructive left renal calculus measuring up to 0.5 cm. The bladder is anech oic with normal post residual. 1. IMPRESSION: 2. Prominent bilateral renal pelvises without overt hydronephrosis. 3. Nonobstructive left renal calculus.
== END | disposition home or self-care (01) ==
LOC: RADUSWWP 09:49
PROVIDERS: ATTEND Internal Medicine
DX: N18.31 Chronic kidney disease, stage 3a (principal); N20.0 Calculus of kidney
CPT/HCPCS: 76770

== ENCOUNTER → 2022-11-20 | Outpatient (CLI) | payer MEDICARE ==
--- NOTE | 2022-11-23 07:45 | MM ---
Reason for Exam: Screening (asymptomatic). Last screening mammogram was performed 12 month(s) ago. Patient History: Menarche at age 14. First Full-Term at age 22. Postmenopausal. Patient has history of breast feeding. Maternal aunt had breast cancer, age 70. Risk Values: Do 5 year model risk: 1.6%. NCI Lifetime model risk: 3.4%. Prior Study Comparison: 05/08/2019 Screening Mammogram, [facility]. 10/24/2020 Screening Mammogram, [facility]. 11/19/2021 Bilateral Screening Mammogram, [facility]. Tissue Density: The breast tissue is heterogeneously dense. This may lower the sensitivity of mammography. Findings: Analyzed By CAD. There is no suspicious group of microcalcifications or new suspicious mass in either breast. Overall Assessment: Benign, BI-RAD 2 Management: Screening Mammogram of both breasts in 1 year. A clinical breast exam by your physician is recommended on an annual basis and results should be correlated with mammographic findings. Electronically signed and approved by: Javon Blackburn M.D. Radiologis
== END | disposition home or self-care (01) ==
LOC: RADMAMWWP 11:20
PROVIDERS: ATTEND Internal Medicine
DX: Z12.31 Encounter for screening mammogram for malignant neoplasm of breast (principal); Z78.0 Asymptomatic menopausal state; Z80.3 Family history of malignant neoplasm of breast
CPT/HCPCS: 77063; 77067

== ENCOUNTER → 2022-12-09 | Outpatient (CLI) | payer MEDICARE ==
--- NOTE | 2022-12-09 10:48 | XR ---
EXAMINATION TYPE: XR KUB DATE OF EXAM: 12/09/2022 COMPARISON: NONE HISTORY: Pain renal stone TECHNIQUE: One view abdominal series FINDINGS: The osseous structures are intact. The bowel gas pattern is nonspecific. Lung bases are clear. Card iac leads are seen and there are surgical clips in the right upper quadrant. There is multilevel dege nerative disc disease. Significant retained fecal debris throughout the colon. Calcifications in the pelvis are nonspecific. No suspicious calcifications are seen overlying the right renal outline. Left renal outline obscured by bowel content. IMPRESSION: 1. Nonspecific pelvic calcifications. Correlate for constipation with limited assessment of the helena l outline on the left. 2. Left hemipelvic calcification measuring 3 mm could potentially be in the course of the left ureter ..
== END | disposition home or self-care (01) ==
LOC: RADXRMAIN 10:19
PROVIDERS: ATTEND Urology
DX: N20.0 Calculus of kidney (principal); N83.8 Other noninflammatory disorders of ovary, fallopian tube and broad ligament
CPT/HCPCS: 74018

== ENCOUNTER 2022-12-10 01:10 | Emergency (ER) | payer MEDICARE ==
[2022-12-10 01:31] VITALS: TEMP 98.4
--- NOTE | 2022-12-10 01:54 | ED ---
General Adult HPI - General Chief complaint: Chest Pain Stated complaint: chest pain Time Seen by Provider: 12/10/22 01:31 Source: patient, RN notes reviewed, old records reviewed Mode of arrival: ambulatory Limitations: no limitations - History of Present Illness Initial comments: 77-year-old female presents for evaluation of left upper chest pain. No associated dyspnea, no associated diaphoresis or vomiting. Symptoms have been present for the past 5 hours. Pain began at rest. No prior history of CAD. She has have history of atrial fibrillation status post pacemaker. No fever. No cough. No injury. - Related Data Home Medications Medication Instructions Recorded Confirmed L.acidoph,Paracasei, B.lactis 1 cap PO DAILY 12/15/17 01/05/22 [Probiotic] Multivit-Min/Iron/Folic/Lutein 1 tab PO DAILY 12/15/17 01/05/22 [Centrum Silver Women Tablet] Lutein 20 mg PO DAILY 10/18/19 01/05/22 Flecainide [Tambocor] 100 mg PO BID 04/17/20 01/05/22 Turmeric(Unknown Dose) 1 tab PO DAILY 04/17/20 01/05/22 Metoprolol Succinate (ER) [Toprol 50 mg PO QAM 12/19/20 01/05/22 XL] Calcium Carbonate [Calcium] 600 mg PO BID 01/02/22 01/05/22 Cholecalciferol [Vitamin D3 (25 50 mcg PO DAILY 01/02/22 01/05/22 Mcg = 1000 Iu)] Previous Rx's Medication Instructions Recorded Furosemide [Lasix] 40 mg PO DAILY #90 tablet 01/05/22 Allergies Allergy/AdvReac Type Severity Reaction Status Date / Time adhesive tape Allergy Rash/Hives Verified 01/02/22 09:33 apixaban [From Eliquis] Allergy skin on Verified 01/02/22 09:33 face turned red, rash losartan [From Cozaar] Allergy Rash/Hives Verified 01/02/22 09:33 Penicillins Allergy Rash/Hives Verified 01/02/22 09:33 rivaroxaban [From Xarelto] AdvReac Blood in Verified 01/02/22 09:33 stool cosmetics Allergy Rash/Hives Uncoded 01/02/22 09:33 detergent Allergy Rash/Hives Uncoded 01/02/22 09:33 metal Allergy Rash/Hives Uncoded 01/02/22 09:33 Review of Systems ROS Statement: Those systems with pertinent positive or pertinent negative responses have been documented in the HPI. ROS Other: All systems not noted in ROS Statement are negative. Past Medical History Past Medical History: Atrial Fibrillation, Chest Pain / Angina, GERD/Reflux, Osteoarthritis (OA), Skin Disorder Additional Past Medical History / Comment(s): See Dr Graves's H&P, varicose veins, hiatal hernia, fatty liver, eczema, light- headedness. History of Any Multi-Drug Resistant Organisms: None Reported Past Surgical History: Ablation, Back Surgery, Cardiac Ablation, Cholecystect cami, Hysterectomy, Joint Replacement, Orthopedic Surgery, Pacemaker Additional Past Surgical History / Comment(s): Total L knee replacement, Recto/cystocele repair with hysterectomy, laminectomy, left knee arthroscopy, rayna cataracts, pacemaker 2019 Past Anesthesia/Blood Transfusion Reactions: Previous Problems w/ Anesthesia, Postoperative Nausea & Vomiting (PONV) Additional Past Anesthesia/Blood Transfusion Reaction / Comment(s): uncontrollable crying post op one time, no hx blood transfusion, wheezing after pacemaker insertion. States had a breathing tx. and given Benadryl, Dr. Graves aware. Type of Cardiac Device: Permanent Pacemaker Device Placement Date:: 2019 Past Psychological History: No Psychological Hx Reported Smoking Status: Never smoker Past Alcohol Use History: Occasional Past Drug Use History: None Reported - Past Family History Mother Family Medical History: Cancer Additional Family Medical History / Comment(s): Colon Cancer. Father Family Medical History: Pulmonary Embolus Additional Family Medical History / Comment(s): Aortic aneurysm, . Son(s) Family Medical History: Pulmonary Embolus Additional Family Medical History / Comment(s): . Brother(s) Family Medical History: Cancer Additional Family Medical History / Comment(s): One brother had Colon Cancer. Another brother has Bone Cancer. Sister(s) Family Medical History: Cancer, Deep Vein Thrombosis (DVT) General Exam Limitations: no limitations General appearance: alert, in no apparent distress Head exam: Present: atraumatic, normocephalic Eye exam: Present: normal appearance, PERRL ENT exam: Present: normal exam Neck exam: Present: normal inspection Respiratory exam: Present: normal lung sounds bilaterally. Absent: respiratory distress, wheezes, rales, rhonchi Cardiovascular Exam: Present: regular rate, normal rhythm GI/Abdominal exam: Present: soft. Absent: distended, tenderness, guarding Extremities exam: Present: normal inspection, normal capillary refill Neurological exam: Present: alert, oriented X3, CN II-XII intact. Absent: motor sensory deficit Psychiatric exam: Present: normal affect, normal mood Skin exam: Present: warm, dry, intact. Absent: cyanosis, diaphoretic Course Vital Signs 12/10/22 12/10/22 01:28 04:51 Temperature 98.4 F Pulse Rate 74 60 Respiratory 10 L 18 Rate Blood Pressure 129/70 136/74 O2 Sat by Pulse 95 97 Oximetry EKG Findings - EKG Comments: EKG Findings:: EKG: Atrial paced rhythm rate of 64, MO interval 163, QRS duration 132, QTC [address] segment elevation. Medical Decision Making - Medical Decision Making 77-year-old female who presents for evaluation of left upper chest pain. Pain is atypical in nature. Worse with movement. No dyspnea. No back pain. No diaphoresis or vomiting. Was pt. sent in by a medical professional or institution (, PA, UNDERGROUND TRUCK OPERATOR, urgent care, hospital, or prison...) When possible be specific @ -No Did you speak to anyone other than the patient for history (EMS, parent, family, police, friend...)? What history was obtained from this source @ -No Did you review nursing and triage notes (agree or disagree)? Why? @ -I reviewed and agree with nursing and triage notes Were old charts reviewed (outside hosp., previous admission, EMS record, old EKG, old radiological studies, urgent care reports/EKG's, prison records)? Report findings @ -Reviewed previous cardiology procedures and cardiology notes. Differential Diagnosis (chest pain, altered mental status, abdominal pain women, abdominal pain men, vaginal bleeding, weakness, fever, dyspnea, syncope, headache, dizziness, GI bleed, back pain, seizure, CVA, palpatations, mental health, musculoskeletal)? @ -Differential Chest Pain: Stable Angina, Unstable Angina, STEMI, NSTEMI Aortic Dissection, Pneumothorax, Musculoskeletal, Esophageal Spasm GERD, Cholecystitis, Pancreatitis, Zoster, this is not meant to be an all-inclusive list. EKG interpreted by me (3pts min.). @ -As above X-rays interpreted by me (1pt min.). @ -Negative for acute cardiopulmonary findings CT interpreted by me (1pt min.). @ -None done U/S interpreted by me (1pt. min.). @ -None done What testing was considered but not performed or refused? (CT, X-rays, U/S, labs)? Why? @ -None What meds were considered but not given or refused? Why? @ -None Did you discuss the management of the patient with other professionals (professionals i.e. , PA, UNDERGROUND TRUCK OPERATOR, lab, RT, psych nurse, social service worker, front desk administrator, teacher, air defense artillery officer, bilingual case manager)? Give summary @ -No Was smoking cessation discussed for >3mins.? @ -No Was critical care preformed (if so, how long)? @ -No Were there social determinants of health that impacted care today? How? (Homelessness, low income, unemployed, alcoholism, drug addiction, transportation, low edu. Level, literacy, decrease access to med. care, alf, rehab)? @ -No Was there de-escalation of care discussed even if they declined (Discuss DNR or withdrawal of care, Hospice)? DNR status @ -No What co-morbidities impacted this encounter? (DM, HTN, Smoking, COPD, CAD, Cancer, CVA, ARF, Chemo, Hep., AIDS, mental health diagnosis, sleep apnea, morbid obesity)? @ -Atrial fibrillation] Was patient admitted / discharged? Hospital course, mention meds given and route, prescriptions, significant lab abnormalities, going to OR and other pertinent info. @ -77-year-old female presents with left upper chest pain worse with movement. Without typical features. EKG is paced rhythm her chest x-ray is clear. She has a normal CBC, normal CMP, negative troponin. Patient did not want further testing beyond what was provided in the emergency department. She was informed that the testing that we have done in the emergency department did not give a clear diagnosis but was reassuring. Undiagnosed new problem with uncertain prognosis? @ -No Drug Therapy requiring intensive monitoring for toxicity (Heparin, Nitro, Insulin, Cardizem)? @ -No Were any procedures done? @ -No Diagnosis/symptom? @ -Chest pain Acute, or Chronic, or Acute on Chronic? @ -Acute Uncomplicated (without systemic symptoms) or Complicated (systemic symptoms)? @ -Complicated Side effects of treatment? @ -No Exacerbation, Progression, or Severe Exacerbation? @ -No Poses a threat to life or bodily function? How? (Chest pain, [place], GA, pneumonia, PE, COPD, DKA, ARF, appy, cholecystitis, CVA, Diverticulitis, Homicidal, Suicidal, threat to staff... and all critical care pts) @ -Chest pain, arrhythmia, cardiac ischemia. - Lab Data Result diagrams: 12/10/22 02:52 12/10/22 02:52 Lab Results 12/10/22 12/10/22 12/10/22 Range/Units 02:52 02:52 02:52 WBC 6.2 (3.8-10.6) k/uL RBC 4.39 (3.80-5.40) m/uL Hgb 13.3 (11.4-16.0) gm/dL Hct 38.7 (34.0-46.0) % MCV 88.2 D (80.0-100.0) fL MCH 30.3 (25.0-35.0) pg MCHC 34.3 (31.0-37.0) g/dL RDW 13.9 (11.5-15.5) % Plt Count 206 (150-450) k/uL MPV 7.5 Neutrophils % 66 % Lymphocytes % 21 % Monocytes % 9 % Eosinophils % 1 % Basophils % 0 % Neutrophils # 4.1 (1.3-7.7) k/uL Lymphocytes # 1.3 (1.0-4.8) k/uL Monocytes # 0.5 (0-1.0) k/uL Eosinophils # 0.1 (0-0.7) k/uL Basophils # 0.0 (0-0.2) k/uL PT 10.2 (9.0-12.0) sec INR 1.0 (<1.2) APTT 23.0 (22.0-30.0) sec Sodium 135 L (137-145) mmol/L Potassium 5.0 (3.5-5.1) mmol/L Chloride 106 (98-107) mmol/L Carbon Dioxide 23 (22-30) mmol/L Anion Gap 6 mmol/L BUN 21 H (7-17) mg/dL Creatinine 0.72 (0.52-1.04) mg/dL Est GFR (CKD-EPI)AfAm >90 (>60 ml/min/1.73 sqM) Est GFR (CKD-EPI)NonAf 83 (>60 ml/min/1.73 sqM) Glucose 97 (74-99) mg/dL Calcium 8.9 (8.4-10.2) mg/dL Magnesium 2.0 (1.6-2.3) mg/dL Total Bilirubin 0.8 (0.2-1.3) mg/dL AST 39 H (14-36) U/L ALT 29 (4-34) U/L Alkaline Phosphatase 41 (38-126) U/L Troponin I (0.000-0.034) ng/mL Total Protein 6.3 (6.3-8.2) g/dL Albumin 3.9 (3.5-5.0) g/dL 12/10/22 Range/Units 02:52 WBC (3.8-10.6) k/uL RBC (3.80-5.40) m/uL Hgb (11.4-16.0) gm/dL Hct (34.0-46.0) % MCV (80.0-100.0) fL MCH (25.0-35.0) pg MCHC (31.0-37.0) g/dL RDW (11.5-15.5) % Plt Count (150-450) k/uL MPV Neutrophils % % Lymphocytes % % Monocytes % % Eosinophils % % Basophils % % Neutrophils # (1.3-7.7) k/uL Lymphocytes # (1.0-4.8) k/uL Monocytes # (0-1.0) k/uL Eosinophils # (0-0.7) k/uL Basophils # (0-0.2) k/uL PT (9.0-12.0) sec INR (<1.2) APTT (22.0-30.0) sec Sodium (137-145) mmol/L Potassium (3.5-5.1) mmol/L Chloride (98-107) mmol/L Carbon Dioxide (22-30) mmol/L Anion Gap mmol/L BUN (7-17) mg/dL Creatinine (0.52-1.04) mg/dL Est GFR (CKD-EPI)AfAm (>60 ml/min/1.73 sqM) Est GFR (CKD-EPI)NonAf (>60 ml/min/1.73 sqM) Glucose (74-99) mg/dL Calcium (8.4-10.2) mg/dL Magnesium (1.6-2.3) mg/dL Total Bilirubin (0.2-1.3) mg/dL AST (14-36) U/L ALT (4-34) U/L Alkaline Phosphatase (38-126) U/L Troponin I <0.012 (0.000-0.034) ng/mL Total Protein (6.3-8.2) g/dL Albumin (3.5-5.0) g/dL Disposition Clinical Impression: Chest pain Disposition: HOME SELF-CARE Condition: Good Instructions (If sedation given, give patient instructions): Chest Pain (ED) Additional Instructions: Please return to the emergency department with worsening or changing symptoms. Please follow closely with her primary care physician and recruiting assistant. Is patient prescribed a controlled substance at d/c from ED?: No Referrals: Seferino Patterson MD [Primary Care Provider] - 1-2 days Time of Disposition: 05:05
[2022-12-10 03:06] LABS: Basophils % (A) 0 %; Eosinophils # (A) 0.1 k/uL (0-0.7); Eosinophils % (A) 1 %; HCT 38.7 % (34.0-46.0); HGB 13.3 gm/dL (11.4-16.0); Lymphocytes # (A) 1.3 k/uL (1.0-4.8); Lymphocytes % (A) 21 %; MCH 30.3 pg (25.0-35.0); MCHC 34.3 g/dL (31.0-37.0); Mean Platelet Volume 7.5; Monocytes # (A) 0.5 k/uL (0-1.0); Monocytes % (A) 9 %; Neutrophils # (A) 4.1 k/uL (1.3-7.7); Neutrophils % (A) 66 %; Platelet Count 206 k/uL (150-450); RBC 4.39 m/uL (3.80-5.40); RDW 13.9 % (11.5-15.5); WBC 6.2 k/uL (3.8-10.6)
[2022-12-10 03:09] LABS: MCV 88.2 fL (80.0-100.0)
[2022-12-10 03:18] LABS: Prothrombin Time 10.2 sec (9.0-12.0)
[2022-12-10 03:51] LABS: ALT 29 U/L (4-34); African American GFR (CKD) >90 (>60 ml/min/1.73 sqM); Anion Gap 6 mmol/L; Blood Urea Nitrogen 21 mg/dL (7-17); Calcium 8.9 mg/dL (8.4-10.2); Carbon Dioxide 23 mmol/L (22-30); Chloride 106 mmol/L (98-107); Glucose 97 mg/dL (74-99); Non-African American GFR(CKD) 83 (>60 ml/min/1.73 sqM); Sodium 135 mmol/L (137-145); Total Bilirubin 0.8 mg/dL (0.2-1.3)
--- NOTE | 2022-12-10 04:05 | XR ---
EXAM: XR Chest, 2 Views CLINICAL HISTORY: ITS.REASON XR Reason: Chest Pain TECHNIQUE: Frontal and lateral views of the chest. COMPARISON: No relevant prior studies available. FINDINGS: Lungs: No consolidation or mass. Pleural space: No effusion. Heart: cardiomegaly. Bones/joints: No acute findings. IMPRESSION: No acute cardiopulmonary process.
[2022-12-10 04:36] LABS: Total Protein 6.3 g/dL (6.3-8.2)
[2022-12-10 04:37] LABS: AST 39 U/L (14-36); Albumin 3.9 g/dL (3.5-5.0); Alkaline Phosphatase 41 U/L (38-126)
[2022-12-10 04:51] VITALS: PULSE 60
[2022-12-10 05:20] VITALS: BP 134/75; RESP 16
== END 2022-12-10 05:23 | disposition home or self-care (01) ==
LOC: EC 01:10
DX: R07.89 Other chest pain (principal); I48.91 Unspecified atrial fibrillation; M19.90 Unspecified osteoarthritis, unspecified site; Z91.09 Other allergy status, other than to drugs and biological substances; Z88.0 Allergy status to penicillin; Z88.8 Allergy status to other drugs, medicaments and biological substances; Z88.6 Allergy status to analgesic agent; Z79.1 Long term (current) use of non-steroidal anti-inflammatories (NSAID)
CPT/HCPCS: 36415; 71046; 80053; 83735; 84484; 85025; 85610; 85730; 93005; 99285

== ENCOUNTER → 2023-08-21 | Outpatient (CLI) | payer MEDICARE ==
[2023-08-21 23:11] LABS: HCT 40.2 % (37.2-46.3); HGB 13.3 g/dL (12.0-15.0); MCH 30.7 pg (27.0-32.0); MCHC 33.1 g/dL (32.0-37.0); MCV 92.8 FL (80.0-97.0); Mean Platelet Volume 9.7 FL (9.5-12.2); NRBC Per 100 WBC 0 X 10*3/uL (0.00-0.01); Platelet Count 282 X 10*3/uL (140-440); RBC 4.33 X 10*6/uL (4.10-5.20); RDW 12.5 % (11.5-14.5); WBC 5.11 X 10*3/uL (4.50-10.00)
[2023-08-21 23:25] LABS: Blood Urea Nitrogen 25.8 mg/dL (9.0-27.0); Carbon Dioxide 28.9 mmol/L (21.6-31.8); Chloride 103 mmol/L (96-109); Potassium 3.9 mmol/L (3.5-5.5); Sodium 143 mmol/L (135-145)
== END | disposition home or self-care (01) ==
LOC: LABPAT 11:23
PROVIDERS: ATTEND Internal Medicine Clinical Cardiac Electrophysiology
DX: Z01.812 Encounter for preprocedural laboratory examination (principal); I48.0 Paroxysmal atrial fibrillation
CPT/HCPCS: 80051; 82565; 84520; 85027

== ENCOUNTER 2023-09-21 10:00 | Day surgery (SDC) | payer MEDICARE ==
[~2023-09-21 10:00] MED LIST changes: +CLINDAMYCIN 600 MG in SODIUM CHLORIDE 0.9% 250 ML IRRIGATION PRN; -CLINDAMYCIN 600 MG in SODIUM CHLORIDE 0.9% IRRIGATIO 250 ML IRRIGATION ONE; -CLINDAMYCIN 900 MG in DEXTROSE 5% IN WATER 50 ML IVPB ONE; +CLINDAMYCIN 900 MG in DEXTROSE 5% IN WATER 50 ML IVPB PRN; +SODIUM CHLORIDE 0.9% 1,000 ML IV SCH
[2023-09-21] MEDS ORDERED: SODIUM CHLORIDE 0.9% 500 ML 500 ML IV ONE (10:42)
[2023-09-21 10:54] LABS: Glucose,Whole Blood 103 mg/dL (70-110)
[2023-09-21 11:13] VITALS: RESP 16; TEMP 97.9
[2023-09-21] MEDS ORDERED: LIDOCAINE 1% INJ 10MG/ML (20 ML MDV) ONE (11:13)
[2023-09-21] MEDS ORDERED: diphenhydrAMINE 50 MG/ML 1 ML VIAL ONE (11:28)
[2023-09-21] MEDS ORDERED: PROPOFOL 10 MG/ML 20 ML VIAL IV ONE (11:28)
[2023-09-21] MEDS ORDERED: fentaNYL (PF) 50 MCG/ML 2 ML AMP ONE (11:28)
[2023-09-21] MEDS ORDERED: MIDAZOLAM 2 MG/2 ML VIAL ONE (11:28)
[2023-09-21] MEDS ORDERED: IOPAMIDOL-370 100ML BTL INJ ONE (11:58)
[2023-09-21] MEDS ORDERED: LIDOCAINE 1% INJ 10MG/ML (20 ML MDV) SQ ONE (12:46)
--- NOTE | 2023-09-21 14:03 | P.EPPROC ---
- EP Procedure Note Electrophysiology Procedure Note: Diagnosis High His bundle thresholds with RV pacing High RV thresholds Premature depletion of the dual-chamber pacemaker battery Planned procedure Upgrade to a biventricular pacemaker with a new LV lead Details Patient was brought to the EP lab in a fasting state. Written informed consent was obtained prior to the procedure. IV antibiotics administered Repeat left upper extremity venogram performed A very short occlusion identified at the subclavian axillary junction Percutaneous access was attempted and venous access was obtained at the axillary vein. A micropuncture wire was placed and I was able to cross the first occlusion successfully but there was an underappreciated second sequential occlusion in the subclavian vein and this wire would not pass through that site despite multiple attempts Therefore I decided not to open the pocket and perform a generator change at this time The biventricular pacemaker device was reprogrammed. AAI-DDD with the longest AV delay of 370 ms This is still promoted intrinsic conduction This will increase battery longevity Plan At the time of JULISA, I would adopt a right-sided approach and implant an LV lead or a left bundle lead This lead would then be tunneled under the skin onto the left pectoral area to the new biventricular pacemaker generator Follow-up chest x-ray today and discharge home today
--- NOTE | 2023-09-21 14:39 | XR ---
EXAMINATION TYPE: XR chest 1V portable DATE OF EXAM: 09/21/2023 2:34 PM CLINICAL INDICATION:Female, 78 years old with history of Rule out pneumothorax, post pacemaker upgrad e; [facility] COMPARISON: Chest radiographs from 12/10/2022 TECHNIQUE: XR chest 1V portable Frontal view of the chest. FINDINGS: Lungs/Pleura: There is no evidence of pleural effusion, focal consolidation, or pneumothorax. Pulmonary vascularity: Unremarkable. Heart/mediastinum: Cardiomediastinal silhouette is unremarkable. Three lead cardiac conduction device overlying the left hemithorax with lead tips projecting over the right ventricle, right atrium and c oronary sinus. Musculoskeletal: No acute osseous pathology. IMPRESSION: No evidence for pneumothorax, No acute cardiopulmonary disease/process.
[2023-09-21 15:54] VITALS: BP 124/60; PULSE 60
== END 2023-09-21 15:36 | disposition home or self-care (01) ==
LOC: CATHEP 10:00
PROVIDERS: ATTEND Internal Medicine Clinical Cardiac Electrophysiology
DX: I48.0 Paroxysmal atrial fibrillation (principal); Z95.5 Presence of coronary angioplasty implant and graft; Z88.8 Allergy status to other drugs, medicaments and biological substances; Z88.0 Allergy status to penicillin; Z88.6 Allergy status to analgesic agent; Z79.899 Other long term (current) drug therapy
CPT/HCPCS: 36005; 75820; 93280; 71045; C1769; J2250; J1200; J2001; J3010; J2704; Q9967; J0736

== ENCOUNTER → 2023-11-24 | Outpatient (CLI) | payer MEDICARE ==
--- NOTE | 2023-11-24 22:49 | MM ---
Reason for Exam: Screening (asymptomatic). Last screening mammogram was performed 12 month(s) ago. Patient History: Menarche at age 14. First Full-Term at age 22. Postmenopausal. Patient has history of breast feeding. Maternal aunt had breast cancer, age 70. Risk Values: Do 5 year model risk: 1.6%. NCI Lifetime model risk: 3.2%. Prior Study Comparison: 10/24/2020 Screening Mammogram, [facility]. 11/19/2021 Bilateral Screening Mammogram, [facility]. 11/20/2022 Bilateral MG 3D screening mammo w/cad, [facility]. Tissue Density: There are scattered areas of fibroglandular density. Findings: Analyzed By CAD. The pattern is symmetrical. Benign vascular calcifications present bilaterally. There are scattered benign calcifications present bilaterally. Pacemaker overlies left chest. No suspicious groups of microcalcifications, spiculated or lobular masses, architectural distortion or other secondary signs of malignancy are mammographically apparent. Overall Assessment: Benign, BI-RAD 2 Management: Screening Mammogram of both breasts in 1 year. A negative mammogram report should not preclude additional follow up of suspicious palpable abnormalities. Patient should continue monthly self breast exam. A clinical breast exam by your physician is recommended on an annual basis and results should be correlated with mammographic findings. Electronically signed and approved by: Archie Li D.O. Radiologis
== END | disposition home or self-care (01) ==
LOC: RADMAMWWP 14:05
PROVIDERS: ATTEND Internal Medicine
DX: Z12.31 Encounter for screening mammogram for malignant neoplasm of breast (principal); Z80.3 Family history of malignant neoplasm of breast; Z78.0 Asymptomatic menopausal state
CPT/HCPCS: 77063; 77067

== ENCOUNTER → 2024-01-17 | Outpatient (CLI) | payer MEDICARE ==
[2024-01-17 18:49] LABS: Basophils # (A) 0.02 X 10*3/uL (0.00-0.10); Basophils % (A) 0.4 %; Eosinophils # (A) 0.15 X 10*3/uL (0.04-0.35); Eosinophils % (A) 3.3 %; HCT 39.1 % (37.2-46.3); HGB 12.7 g/dL (12.0-15.0); Lymphocytes # (A) 1.18 X 10*3/uL (0.90-5.00); Lymphocytes % (A) 26.2 %; MCHC 32.5 g/dL (32.0-37.0); MCV 89.3 FL (80.0-97.0); Mean Platelet Volume 9.8 FL (9.5-12.2); Monocytes # (A) 0.56 X 10*3/uL (0.20-1.00); Monocytes % (A) 12.4 %; NRBC Per 100 WBC 0 X 10*3/uL (0.00-0.01); Neutrophils # (A) 2.57 X 10*3/uL (1.80-7.70); Neutrophils % (A) 57.3 %; Platelet Count 288 X 10*3/uL (140-440); RBC 4.38 X 10*6/uL (4.10-5.20)
[2024-01-17 19:14] LABS: ALT 19 U/L (8-44); AST 22 U/L (13-35); Albumin 4.4 g/dL (3.8-4.9); Alkaline Phosphatase 64 U/L (41-126); Blood Urea Nitrogen 22.4 mg/dL (9.0-27.0); Calcium 9.7 mg/dL (8.7-10.3); Carbon Dioxide 28.7 mmol/L (21.6-31.8); Chloride 100 mmol/L (96-109); Chol/HDL Ratio 2.35 Ratio; Globulin 2.1 g/dL (1.6-3.3); Glucose 96 mg/dL (70-110); LDL Cholesterol,Calculated 88.8 mg/dL (0.0-131.0); Potassium 4.4 mmol/L (3.5-5.5); Sodium 141 mmol/L (135-145); Total Bilirubin 0.6 mg/dL (0.3-1.2); Total Protein 6.5 g/dL (6.2-8.2); Uric Acid 6.8 mg/dL (2.9-7.7); VLDL Calculation 13.86 mg/dL (5.00-40.00)
== END | disposition home or self-care (01) ==
LOC: LABWHC1 12:32
PROVIDERS: ATTEND Internal Medicine
DX: I12.9 Hypertensive chronic kidney disease with stage 1 through stage 4 chronic kidney disease, or unspecified chronic kidney disease (principal); E78.5 Hyperlipidemia, unspecified; M85.80 Other specified disorders of bone density and structure, unspecified site; N20.0 Calculus of kidney; N18.31 Chronic kidney disease, stage 3a
CPT/HCPCS: 36415; 80053; 80061; 82306; 83735; 83970; 84443; 84550; 85025

== ENCOUNTER → 2024-04-17 | Outpatient (CLI) | payer MEDICARE ==
--- NOTE | 2024-05-16 10:14 | XR ---
Patient Mallory Cavanaugh E ID [id number] Age 76 years Gender F Order # [id number] EXAMINATION TYPE: XR Hip Complete LT DATE OF EXAM: 04/17/2024 COMPARISON: No pertinent comparison images HISTORY: Left hip pain x3 months TECHNIQUE: 2 view left hip FINDINGS: Femoral head articulates with the acetabulum. No acute fracture or dislocation is evident. Follow-up can be performed as clinically indicated IMPRESSION: 1. No acute osseous abnormalities left hip
== END | disposition home or self-care (01) ==
LOC: RADXRMAIN 11:38
PROVIDERS: ATTEND Internal Medicine
DX: M25.552 Pain in left hip (principal)
CPT/HCPCS: 73502